=== PATIENT | female | born 1995 | race Caucasian/White ===

== ENCOUNTER 2019-10-04 10:46 | Inpatient (IN) | payer OTHER, SELFPAY ==
[2019-10-04] VITALS (20 sets, daily range): BP systolic 108–142; BP diastolic 56–87; PULSE 68–86; TEMP 36.6–37.3; BMI 34.8
--- NOTE | ~2019-10-04 | US_ITS ---
EXAMINATION: US venous doppler [facility] EXAM DATE: 10/04/2019 13:15 INDICATION: Left leg swelling. TECHNIQUE: Multiple grayscale, color flow and Doppler images of the left lower extremity deep venous system were obtained and reviewed. There is no prior study for comparison. FINDINGS: The left common femoral, femoral and profunda veins demonstrate normal color flow, respirat ory variation, augmentation and compressibility. Compressibility, color flow confirmed within the le ft popliteal, posterior tibial, peroneal, and greater saphenous veins. Scanning in the left calf elb ow region demonstrates edema within the subcutaneous fat IMPRESSION: 1. No left lower extremity deep venous thrombosis. 2. Subcutaneous edema. Reviewed, dictated and finalized at location A.
[2019-10-04 14:10] LABS: Basophils Percent Auto 0.3 % (0.2-1.2); Eosinophils Percent Auto 0.3 % (0-4.4); Hematocrit 34.4 % (37.0-47.0); Immature Granulocyte Absolute 0.08 K/mm3 (0.00-0.031); Immature Granulocyte Percent A 0.7 % (0-0.5); Immature Platelet Fraction Pct 25.4 % (0.9-11.2); Lymphocytes Absolute Auto 1.03 K/mm3 (0.9-3.2); Lymphocytes Percent Auto 9.7 % (18.3-44.2); Mean Corpuscular HGB Conc 34.9 g/dl (32-36); Mean Corpuscular Volume 94.5 fl (80-100); Mean Platelet Volume 14.5 fl (7.4-10.4); Monocytes Absolute Auto 0.5 K/mm3 (0.1-0.6); Monocytes Percent Auto 4.9 % (2.6-8.5); Neutrophils Percent Auto 84.1 % (45.5-73.1); Platelet Count Result 118 k/mm3 (150-375); Red Blood Count 3.64 M/mm3 (4.2-5.4); White Blood Count 10.7 K/mm3 (4.5-10.0)
[2019-10-04 14:20] LABS: Alanine Aminotransferase 14 U/L (4-35); Albumin Level 3.4 g/dL (3.5-5.1); Alkaline Phosphatase 207 U/L (38-126); Aspartate Amino Transferase 34 U/L (14-36); Bilirubin,Total 0.2 mg/dL (0.2-1.3); Blood Urea Nitrogen 11 mg/dL (7-17); Calcium 8.2 mg/dL (8.4-10.2); Carbon Dioxide 21 mmol/L (22-30); Chloride 100 mmol/L (98-107); Estimated Glomerular Filt Rate > 60; Glucose 67 mg/dL (65-105); Potassium 4.1 mmol/L (3.4-5.0); Sodium 128 mmol/L (137-145); Uric Acid 7.1 mg/dL (2.5-7.5)
[2019-10-04] MEDS: DINOPROSTONE 10 MG VAG INSERT VAGINAL (14:27)
--- NOTE | 2019-10-04 14:44 | PM.IMHP ---
H&P: HPI History of Present Illness Chief complaint: Induction of Labor Narrative: Bertha Whittington is a 23 yo @ 37.6wks who was sent to L&D from clinic for cervical ripening and induction of labor due to a new diagnosis of gestational hypertension. Pt also reports checking blood pressures at home and was persistently in the mild range all weekend. She was then found to have thrombocytopenia on blood work today; P/C is negative at 0.15, AST/ALT and creatintine are all normal. She reports good movement. Mild cramping. No PEC symptoms. Does reports significant LE swelling though. is complicated by: - Gestational Hypertension (P/C 0.15) - Gestational thrombocytopenia - Elevated glucola, normal 3hr OGTT - Varicella non-immune Review of Systems Constitutional: Constitutional: Denies body ache(s) and Reports fatigue Eyes: Eyes: Denies blurry vision Cardiovascular: Cardiovascular: Denies chest pain, Reports leg edema and Denies palpitations Respiratory: Respiratory: Denies cough and Denies dyspnea Gastrointestinal: Gastrointestinal: Denies abdominal pain, Denies constipation, Denies nausea and Denies vomiting Genitourinary: Genitourinary: Denies vaginal discharge Integumentary/Breasts: Skin/Breast: Reports pruritus Neurologic: Denies headache(s) [facility] Family History Family History Other Unknown family medical history Social History Social History Smoking status: Never smoker Substance use: never Spiritual care concerns: No Meds Home Medications and Allergies Home Medications Medication Instructions Recorded Confirmed Type PNV cmb#95-ferrous fumarate-FA 1 tablet PO DAILY 09/17/19 09/17/19 History [] Allergies Allergy/AdvReac Type Severity Reaction Status Date / Time erythromycin base Allergy Unknown Rash Verified 09/17/19 13:37 Sulfa (Sulfonamide Allergy Unknown Unresponsiv Verified 09/17/19 13:37 Antibiotics) e azithromycin [From Zithromax] Allergy Rash Verified 09/17/19 13:37 Vital Signs Vital Signs - 24 hr 10/04/19 11:15 10/04/19 11:30 10/04/19 11:45 Pulse Rate 83 78 78 Blood Pressure 126/70 124/68 121/64 10/04/19 12:00 10/04/19 12:15 10/04/19 13:51 Pulse Rate 79 77 74 Blood Pressure 116/63 116/69 114/62 10/04/19 14:00 10/04/19 14:16 Pulse Rate 75 79 Blood Pressure 108/57 L 124/67 Exam Const: General: comfortable and no acute distress Resp: Effort & Inspection: normal respiratory effort Auscultation: clear to auscultation bilaterally Cardio: Rate: regular rate : Other: FHT's: 130's/ mod vale/ + accels/ no decels - cat 1 TOCO: irregular ctx's q 6-10min Cervix: 2/ thick/ -3 - posterior, medium Membranes: intact Skin: Rashes: rashes noted (PUPPS on abdomen) Neuro: Cognition (Neuro): normal cognition Speech: normal speech Extrem: General: pedal edema Psych: Mental Status: mental status grossly normal H&P: Results Labs Labs: Short CBC 10/04/19 Range/Units 13:42 WBC 10.7 H (4.5-10.0) K/mm3 Hgb 12.0 (12.0-15.0) g/dL Hct 34.4 L (37.0-47.0) % Plt Count 118 L (150-375) k/mm3 BMP 10/04/19 13:42 Sodium 128 L Potassium 4.1 Chloride 100 Carbon Dioxide 21 L BUN 11 Creatinine 0.80 Glucose 67 Calcium 8.2 L Liver Function 10/04/19 Range/Units 13:42 Total Bilirubin 0.2 (0.2-1.3) mg/dL AST 34 (14-36) U/L ALT 14 (4-35) U/L Alkaline Phosphatase 207 H (38-126) U/L Albumin 3.4 L (3.5-5.1) g/dL Assessment and Plan Assessment and plan (1) Gestational hypertension: Qualifiers: Trimester: third trimester Qualified Code(s): O13.3 - Gestational [-induced] hypertension without significant proteinuria, third trimester Code(s): O13.9 - Gestational [-induced] hypertension without significant proteinuria, unspecified
[2019-10-04 14:54] LABS: Creatinine Urine 173.3 mg/dL; Total Protein Urine Random 27 mg/dL
--- NOTE | 2019-10-04 15:12 | LDADM ---
This patient, Bertha Whittington, was admitted to Labor/Delivery/Recovery 109 on 10/04/19 at 10:46. Plans for labor, pain management and were discussed with patient. Patient/family oriented to hospital policies and general routines including ID bracelet, bed and alarms, visiting hours, pain management, procedures, bathroom and other care routines, personal items, smoking policy, room service/diet and guest tray routines, security routines, and visiting hours. Patient/Family are encouraged to report perceived risks to care and to ask questions if they do not understand what they are told or what they should do. See OBIX for further documentation.
--- NOTE | 2019-10-04 17:50 | WPDANESEPP ---
Anes - Eval Pre Procedure Date/Time: 10/04/19 17:50 Pre Op Diagnosis: Induction of Labor Patient Data Age: 23 Gender: F Height: 5 ft 9 in Weight: 107 kg Last Vital Signs Temp 98 F 10/04/19 14:00 Pulse 70 10/04/19 17:01 BP 128/67 10/04/19 17:01 Allergies Allergy/AdvReac Type Severity Reaction Status Date / Time erythromycin base Allergy Unknown Rash Verified 09/17/19 13:37 Sulfa (Sulfonamide Allergy Unknown Unresponsiv Verified 09/17/19 13:37 Antibiotics) e azithromycin [From Zithromax] Allergy Rash Verified 09/17/19 13:37 Home Medications Medication Instructions Recorded Confirmed Type PNV cmb#95-ferrous fumarate-FA 1 tablet PO DAILY 09/17/19 09/17/19 History [] Laboratory Tests 10/04/19 10/04/19 10/04/19 13:42 13:42 13:42 WBC 10.7 K/mm3 H K/mm3 (4.5-10.0) RBC 3.64 M/mm3 L M/mm3 (4.2-5.4) Hgb 12.0 g/dL g/dL (12.0-15.0) Hct 34.4 % L % (37.0-47.0) MCV 94.5 fl fl (80-100) MCH 33.0 pg pg (26-34) MCHC 34.9 g/dl g/dl (32-36) RDW 13.0 % % (11.5-14.5) Plt Count 118 k/mm3 L k/mm3 (150-375) MPV 14.5 fl H fl (7.4-10.4) Immature Gran % (Auto) 0.7 % H % (0-0.5) Neut % (Auto) 84.1 % H % (45.5-73.1) Lymph % (Auto) 9.7 % L % (18.3-44.2) Lawrence % (Auto) 4.9 % % (2.6-8.5) Eos % (Auto) 0.3 % % (0-4.4) Baso % (Auto) 0.3 % % (0.2-1.2) Lymph # (Auto) 1.03 K/mm3 K/mm3 (0.9-3.2) Lawrence # (Auto) 0.5 K/mm3 K/mm3 (0.1-0.6) Eos # (Auto) 0.0 K/mm3 K/mm3 (0-0.3) Baso # (Auto) 0.0 K/mm3 K/mm3 (0.0-0.1) Abs Immat Gran (auto) 0.08 K/mm3 H K/mm3 (0.00-0.031) Absolute Neuts (auto) 9.0 K/mm3 H K/mm3 (1.3-6.7) Absolute Nucleated RBC 0.0 K/mm3 K/mm3 (0.0-0.012) Nucleated RBC % 0.0 % % (0.0-0.2) % Immature Plt Fraction 25.4 % H % (0.9-11.2) Sodium Potassium Chloride Carbon Dioxide BUN Creatinine Estim Creat Clear Calc Estimated GFR Glucose Uric Acid Cancelled Calcium Total Bilirubin AST ALT Alkaline Phosphatase Total Protein Albumin U Random Total Protein Urine Creatinine RPR Pending Blood Type Antibody Screen 10/04/19 10/04/19 10/04/19 13:42 13:42 13:56 WBC RBC Hgb Hct MCV MCH MCHC RDW Plt Count MPV Immature Gran % (Auto) Neut % (Auto) Lymph % (Auto) Lawrence % (Auto) Eos % (Auto) Baso % (Auto) Lymph # (Auto) Lawrence # (Auto) Eos # (Auto) Baso # (Auto) Abs Immat Gran (auto) Absolute Neuts (auto) Absolute Nucleated RBC Nucleated RBC % % Immature Plt Fraction Sodium 128 mmol/L L mmol/L (137-145) Potassium 4.1 mmol/L mmol/L (3.4-5.0) Chloride 100 mmol/L mmol/L (98-107) Carbon Dioxide 21 mmol/L L mmol/L (22-30) BUN 11 mg/dL mg/dL (7-17) Creatinine 0.80 mg/dL mg/dL (0.7-1.0) Estim Creat Clear Calc Not Reportable Estimated GFR > 60 (59 - ) Glucose 67 mg/dL mg/dL (65-105) Uric Acid 7.1 mg/dL mg/dL (2.5-7.5) Calcium 8.2 mg/dL L mg/dL (8.4-10.2) Total Bilirubin 0.2 mg/dL mg/dL (0.2-1.3) AST 34 U/L U/L (14-36) ALT 14 U/L U/L (4-35) Alkaline Phosphatase 207 U/L H U/L (38-126) Total Pro
[2019-10-05] VITALS (110 sets, daily range): BP systolic 98–143; BP diastolic 46–104; PULSE 63–92; TEMP 36.6–37.2; O2SAT 100
[2019-10-05 02:52] LABS: Basophils Percent Auto 0.3 % (0.2-1.2); Eosinophils Absolute Auto 0.1 K/mm3 (0-0.3); Eosinophils Percent Auto 0.4 % (0-4.4); Hematocrit 34.2 % (37.0-47.0); Hemoglobin 12.1 g/dL (12.0-15.0); Immature Granulocyte Absolute 0.09 K/mm3 (0.00-0.031); Immature Granulocyte Percent A 0.7 % (0-0.5); Lymphocytes Absolute Auto 1.59 K/mm3 (0.9-3.2); Lymphocytes Percent Auto 12.2 % (18.3-44.2); Mean Corpuscular HGB Conc 35.4 g/dl (32-36); Mean Corpuscular Hemoglobin 32.9 pg (26-34); Mean Corpuscular Volume 92.9 fl (80-100); Monocytes Absolute Auto 0.7 K/mm3 (0.1-0.6); Neutrophils Absolute Auto 10.6 K/mm3 (1.3-6.7); Neutrophils Percent Auto 81.4 % (45.5-73.1); Platelet Count Result 105 k/mm3 (150-375); Red Blood Count 3.68 M/mm3 (4.2-5.4); Red Cell Distribution Width 12.8 % (11.5-14.5); White Blood Count 13.1 K/mm3 (4.5-10.0)
[2019-10-05] MEDS: LACTATED RINGERS 1,000 ML 125 ML IV CONT ×4 (03:10→19:22)
[2019-10-05] MEDS: OXYTOCIN 30 UNITS/NS 500 ML 30 UNITS/500 ML BAG IV CONT (03:11)
[2019-10-05 03:13] LABS: Alanine Aminotransferase 14 U/L (4-35); Albumin Level 3.1 g/dL (3.5-5.1); Alkaline Phosphatase 195 U/L (38-126); Aspartate Amino Transferase 33 U/L (14-36); Bilirubin,Total 0.2 mg/dL (0.2-1.3); Blood Urea Nitrogen 12 mg/dL (7-17); Calcium 8.1 mg/dL (8.4-10.2); Carbon Dioxide 20 mmol/L (22-30); Chloride 98 mmol/L (98-107); Estimated CRCL calculation 125 ml/min; Estimated Glomerular Filt Rate > 60; Glucose 81 mg/dL (65-105); Potassium 4.1 mmol/L (3.4-5.0); Sodium 125 mmol/L (137-145)
[2019-10-05 07:34] LABS: Rapid Plasma Reagin Non-Reactive (NonReactive)
[2019-10-05] MEDS: ONDANSETRON INJ 4 MG/2 ML VIAL IV PUSH ×2 (11:39→19:17)
--- NOTE | 2019-10-05 13:45 | PM.OBPNLAB ---
Pain Control Date/time seen: 10/05/19 13:45 Pain control: epidural Pelvic Exam Dilation (cm): 5 Effacement (%): 90 station: -3 Amniotic membrane status: Ruptured (@ 0845 on 10/05/19) Contractions Monitor mode: External Contraction pattern: Regular (having some coupling q1-3min) Status status: Category ll Comments: 120's/mod vale/ + accels/ early decels, occasional mild variable decels - cat 2 but reassuring Assessment and Plan Pitocin rate (mU/min): 16 Assessment: induction ongoing Plan: continuous present management (early labor; making progress) Comments: - BP's normal; pt asymptomatic - plts stable; normal P/C and liver enzymes - Continue pitocin augmentation
[2019-10-05 17:36] LABS: Basophils Percent Auto 0.2 % (0.2-1.2); Eosinophils Percent Auto 0.1 % (0-4.4); Hematocrit 34.4 % (37.0-47.0); Hemoglobin 11.9 g/dL (12.0-15.0); Immature Granulocyte Percent A 0.7 % (0-0.5); Lymphocytes Absolute Auto 1.14 K/mm3 (0.9-3.2); Lymphocytes Percent Auto 7.9 % (18.3-44.2); Mean Corpuscular HGB Conc 34.6 g/dl (32-36); Mean Corpuscular Hemoglobin 32.3 pg (26-34); Mean Corpuscular Volume 93.5 fl (80-100); Mean Platelet Volume 14.5 fl (7.4-10.4); Monocytes Absolute Auto 0.8 K/mm3 (0.1-0.6); Monocytes Percent Auto 5.3 % (2.6-8.5); Neutrophils Absolute Auto 12.5 K/mm3 (1.3-6.7); Neutrophils Percent Auto 85.8 % (45.5-73.1); Platelet Count Result 97 k/mm3 (150-375); Red Blood Count 3.68 M/mm3 (4.2-5.4); White Blood Count 14.5 K/mm3 (4.5-10.0)
[2019-10-05 17:43] LABS: Alanine Aminotransferase 14 U/L (4-35); Alkaline Phosphatase 192 U/L (38-126); Anion Gap 11.4 mmol/L (7-16); Aspartate Amino Transferase 31 U/L (14-36); Bilirubin,Total 0.2 mg/dL (0.2-1.3); Blood Urea Nitrogen 13 mg/dL (7-17); Calcium 7.8 mg/dL (8.4-10.2); Carbon Dioxide 22 mmol/L (22-30); Chloride 97 mmol/L (98-107); Estimated CRCL calculation 112 ml/min; Estimated Glomerular Filt Rate > 60; Glucose 73 mg/dL (65-105); Potassium 4.4 mmol/L (3.4-5.0); Sodium 126 mmol/L (137-145); Uric Acid 6.5 mg/dL (2.5-7.5)
[2019-10-05] MEDS: OXYTOCIN 30 UNITS/NS 500 ML 30 UNITS/500 ML BAG 125 UNITS IV CONT (23:30)
--- NOTE | 2019-10-05 23:49 | PM.OBPRVD ---
OB - Delivery Note Procedure Delivery date: 10/05/19 events: Induced HTN Intrapartal events: Abnormal Labs (gestational thrombocytopenia) Induction method: other (cervidil) Delivery augmentation: rupture of membranes and pitocin Delivery monitor: external uterine and internal FHT Route of delivery: Laceration description: Vaginal - 2nd Degree (bilateral that extended to the labia; vaginal packing and dia catheter placed due to extensive swelling and oozing) Delivery repair: vicryl Specimen: Yes Estimated blood loss (mL): 450 Anesthesia type: Epidural Disposition: floor Narrative: Patient progressed to complete dilation however was found to be very asynclytic. She pushed with good maternal effort for approximately the 2 hours. She delivered the head in direct OA over intact perineum. No nuchal cord was palpated. the shoulders and body easily delivered. The was immediately placed skin to skin and had spontaneous cry. The umbilical cord was then clamped and cut. a segment of cord was collected cord gases and the remaining cord blood was collected for typing. With Pitocin running and gentle traction on the cord the placenta delivered without complications and the uterus is found to be firm. Brisk bleeding was noted and the vagina was examined and found to bilateral vaginal lacerations extending into the labia due to the patient's extensive vulvar edema. the vaginal lacerations were repaired using 2 0 Vicryl in a running fashion. However extensive oozing was noted from all of the raw edges due to the patient's thrombocytopenia. One vaginal packing was placed as well as a Dia catheter. Sponge, lap, needle, and instrument counts were correct at the end of the procedure. The patient was left in the birthing suite bonding skin to skin with her baby in a stable condition. [facility]on Baby Date of : 10/05/19 Time of : 23:03 Weeks of gestation at delivery: 38 Infant gender: Female Weight (pounds): 7 Weight (ounces): 11 presentation: vertex Placenta delivery description: Expressed cord vessel description: 3 Vessels score one minute: 8 score five minutes: 9
[2019-10-06] VITALS (12 sets, daily range): BP systolic 116–143; BP diastolic 60–84; PULSE 70–81; RESP 12–16; TEMP 36.7–37.1; O2SAT 98–99
[2019-10-06] MEDS: IBUPROFEN 600 MG TABLET PO ×4 (00:31→21:41)
[2019-10-06] MEDS: WITCH HAZEL 40 PADS 1 PAD TOPICAL (00:31)
[2019-10-06] MEDS: BENZOCAINE 20% AER SPR (*SP) 56 GM CAN 1 SPRAY TOPICAL (00:31)
[2019-10-06] MEDS: miSOPROStol 200 MCG TABLET 1000 MCG (00:34)
--- NOTE | 2019-10-06 02:10 | PC.NURSE ---
0145 Pt to floor per wheelchair accompanied by staff and baby in crib. Plan of care and floor routines explained to pt and she voices understanding. Mom encouraged to make needs and concerns known to staff
[2019-10-06 05:53] LABS: Hematocrit 31.3 % (37.0-47.0); Hemoglobin 10.9 g/dL (12.0-15.0)
[2019-10-06 06:06] LABS: Alanine Aminotransferase 19 U/L (4-35); Albumin Level 2.6 g/dL (3.5-5.1); Alkaline Phosphatase 149 U/L (38-126); Anion Gap 9.9 mmol/L (7-16); Aspartate Amino Transferase 43 U/L (14-36); Bilirubin,Total 0.3 mg/dL (0.2-1.3); Blood Urea Nitrogen 14 mg/dL (7-17); Calcium 7.6 mg/dL (8.4-10.2); Carbon Dioxide 20 mmol/L (22-30); Chloride 97 mmol/L (98-107); Estimated CRCL calculation 112 ml/min; Estimated Glomerular Filt Rate > 60; Glucose 107 mg/dL (65-105); Potassium 3.9 mmol/L (3.4-5.0); Sodium 123 mmol/L (137-145)
--- NOTE | 2019-10-06 07:00 | PC.NURSE ---
PT introductions made and plan of care discussed per post , pain management, breast feeding, daily care activities and vaginal packing and dia. PT verbalized understanding of such care.
[2019-10-06] MEDS: MULTIVIT/MIN/PREN/FOL AC/IRON TABLET 1 TAB PO (07:04)
[2019-10-06] MEDS: DOCUSATE SODIUM 100 MG CAPSULE PO ×2 (07:05→16:49)
[2019-10-06] MEDS: ACETAMINOPHEN 325 MG TABLET 650 MG PO ×2 (07:05→13:05)
[2019-10-06 08:42] LABS: Hematocrit 31.5 % (37.0-47.0); Mean Corpuscular HGB Conc 34.9 g/dl (32-36); Mean Corpuscular Hemoglobin 32.4 pg (26-34); Mean Corpuscular Volume 92.9 fl (80-100); Platelet Count Result 94 k/mm3 (150-375); Red Blood Count 3.39 M/mm3 (4.2-5.4); Red Cell Distribution Width 12.9 % (11.5-14.5); White Blood Count 22.5 K/mm3 (4.5-10.0)
--- NOTE | 2019-10-06 09:34 | WPDANLDPN2 ---
Anes-Prog Note L&D Date/Time: 10/06/19 09:34 Comfortable throughout: labor and delivery Neuraxial method: epidural Epidural/Spinal procedure site: clean & non-tender Neuro status: Neuro function grossly intact. Cardiovascular status: normal Respiratory status: normal Airway patency: baseline Mental status: baseline Post-Op hydration status: normal Vital Signs: Last Vital Signs Temp 37.1 C 10/06/19 07:50 Pulse 79 10/06/19 07:50 Resp 16 10/06/19 07:50 BP 124/60 10/06/19 07:50 Pulse Ox 98 10/06/19 07:50 I/O: Intake & Output 10/05/19 10/06/19 10/06/19 23:59 07:59 15:59 Intake Total 3500 600 Output Total 450 575 Balance 3050 25 Post-procedural complaints: none Patient feedback: Patient satisfied with anesthetic care.
--- NOTE | 2019-10-06 12:20 | PC.NURSE ---
Upon entering mother has to breast. Mother states her RN assisted with this feeding. Reviewed infant feeding cues, frequencies, duration of feedings, feeding elimination flow sheet, and signs of adequate intake. Reviewed positioning/alignment in cross cradle, holding breast in U hold and guided asymmetrical latch on. Discussed rational for each. Mother denies discomfort with feeding. nursed eagerly, with steady draws and frequent swallowing noted. Reviewed signs of a correct latch, effective nursing and suck swallow ratio. Infant was able to maintain latch without discomfort to mother. Nipple care reviewed. Suggested mother stimulate while feeding to keep awake and nursing effectively for increased intake and to assist with maintaining deep latch. Demonstrated how to adjust latch more deeply while feeding. Instructed mother to call out for RN assistance if she is unable to latch infant for feeding or she has discomfort with nursing. Instructed feeding should be initiated three hours from start of last feeding or if feeding cues are noted before. Mother voiced understanding of information shared.
[2019-10-07] MEDS: IBUPROFEN 600 MG TABLET PO ×2 (04:00→10:20)
[2019-10-07 08:20] VITALS: BP 122/72; PULSE 68; RESP 16; TEMP 37; O2SAT 99
[2019-10-07] MEDS: MULTIVIT/MIN/PREN/FOL AC/IRON TABLET 1 TAB PO (10:20)
[2019-10-07] MEDS: DOCUSATE SODIUM 100 MG CAPSULE PO (10:20)
--- NOTE | 2019-10-07 11:40 | PC.NURSE ---
Observed mother verbalizes she is able to independently latch with appropriate positioning/alignment. She denies any nipple discomfort, is feeding as required and waking to feed if needed. has had at least 8 effective feedings in the past 24 hours, and is currently meeting outcomes for weight, output, jaundice and feeding frequencies. Mother states she feels confident to continue effective at home. Reviewed transition to breast milk, signs of adequate intake, and engorgement/relief. Instructed to call ICP if intake/output less than required. Reviewed regular medications mother is taking. Information provided per Carmela. Reviewed community resources on the [facility] website and in the Mom/Baby guide. Information on outpatient services provided. Mother has no further questions at this time.
--- NOTE | 2019-10-07 13:05 | P.PNOB_ITS ---
OB - PN: Subj Subjective Date/time seen: 10/07/19 13:05 Bertha is a 23yo now P1001 s/p @ 38.0wks, PPD#2 - GHTN, gestational thrombocytopenia, elevated glucola/normal OGTT Today, Bertha is doing well. The dia was removed this morning and she has voided 4 times since. She reports her pain is well controlled with the Ibuprofen. She is tolerating regular diet w/o N/V. She is breast feeding. She denies any issues. She would like to go home today. OB - PN: Obj Data Labs CBC & Chem 7: 10/06/19 05:22 10/06/19 05:22 OB - PN A/P Assessment and Plan (1) Gestational hypertension: Qualifiers: Trimester: third trimester Qualified Code(s): O13.3 - Gestational [-induced] hypertension without significant proteinuria, third trimester Code(s): O13.9 - Gestational [-induced] hypertension without significant proteinuria, unspecified trimester Status: Acute (2) Gestational thrombocytopenia: Qualifiers: Trimester: third trimester Qualified Code(s): O99.113 - Other diseases of the blood and blood-forming organs and certain disorders involving the immune mechanism complicating , third trimester; D69.6 - Thrombocytopenia, unspecified Code(s): O99.119 - Other diseases of the blood and blood-forming organs and certain disorders involving the immune mechanism complicating , unspecified trimester; D69.6 - Thrombocytopenia, unspecified Status: Acute (3) Normal vaginal delivery: Code(s): O80 - Encounter for full-term uncomplicated delivery Status: Acute Plan day: 2 Plan: routine care and discharge home Comments: - BP's normal, labs stable, pt asymptomatic - Pt diuresing nicely and swelling improved, continue ice packs to vulva and ambulating - Dia removed this morning and pt has spontaneously voided multiple times - D/c home today; ER return precautions discussed in detail (HTN symptoms, pain/n/v, bleeding, fever) - Pelvic rest x4 weeks - F/u in 4 weeks, call office with any issues or questions. Time Spent With Patient Time: Total time spent is greater than 50% in coordination of care (as documented) at patient's floor/unit and/or counseling patient: Review of Systems Constitutional: Constitutional: Denies body ache(s) and Denies headache(s) Cardiovascular: Cardiovascular: Denies rapid heart rate Respiratory: Respiratory: Denies cough and Denies dyspnea Gastrointestinal: Gastrointestinal: Denies abdominal pain, Denies nausea and Denies vomiting Genitourinary: Genitourinary: Denies dysuria Comments: normal bleeding, swelling improved Neurologic: Denies headache(s) Exam Const: General: comfortable, no acute distress, alert and awake Orientation/consciousness: patient oriented x3 Resp: Effort & Inspection: normal respiratory effort Auscultation: clear to auscultation bilaterally Cardio: Rate: regular rate GI: Auscultation: normal bowel sounds Other: mildly distended, soft, non tender : Other: fundus firm at umbilicus, labia majora noted to still be edematous but significantly improved from yesterday, normal lochia Psych: Appearance: grossly normal Affect: normal affect Attitude: cooperative Judgement: Good judgement present (Psych)
[2019-10-10 08:57] VITALS: BP 134/79; PULSE 74; RESP 16; TEMP 37.1; O2SAT 100
--- NOTE | 2019-10-10 09:48 | PC.NURSE ---
0940 TALKED WITH MOM ABOUT POSSIBLE SUPPLEMENTATION TODAY OR UNTIL [facility]'S DOCTOR APPOINTMENT EVERY 4 HOURS WITH EITHER PUMPED BREAST MILK OR FORMULA WITH 15-30 ML TO HELP WITH WEIGHT GAIN
--- NOTE | 2019-10-17 11:05 | PM.OBDSVD ---
DS: Admitting Diagnosis Admitting Diagnosis Admitting Diagnosis: Encounter for supervision of normal , unspecified, third trimester DS: Discharge Diagnosis Discharge Diagnosis (1) Normal vaginal delivery: Code(s): O80 - Encounter for full-term uncomplicated delivery Status: Acute (2) Gestational hypertension: Qualifiers: Trimester: third trimester Qualified Code(s): O13.3 - Gestational [-induced] hypertension without significant proteinuria, third trimester Code(s): O13.9 - Gestational [-induced] hypertension without significant proteinuria, unspecified trimester Status: Acute (3) Gestational thrombocytopenia: Qualifiers: Trimester: third trimester Qualified Code(s): O99.113 - Other diseases of the blood and blood-forming organs and certain disorders involving the immune mechanism complicating , third trimester; D69.6 - Thrombocytopenia, unspecified Code(s): O99.119 - Other diseases of the blood and blood-forming organs and certain disorders involving the immune mechanism complicating , unspecified trimester; D69.6 - Thrombocytopenia, unspecified Status: Acute OB - DS: Summary OB Procedures : None OB Procedures Intrapartum: Spontaneous Vag Delivery OB Procedures: : None Peripartum Data Delivery Method: Natural Vaginal Laceration description: Vaginal - 2nd Degree (and bilateral labial ) complications: perineal laceration (with significant swelling; had vaginal packing and dia catheter) 1: Gender: Female Disposition of : home Status at Discharge Functional status at discharge: independent ambulation Overall status at discharge: patient is back to baseline Time Spent with Patient Time attestation: Total time spent providing and/or coordinating discharge services: Exam Const: General: comfortable, no acute distress, alert and awake Orientation/consciousness: patient oriented x3 Resp: Effort & Inspection: normal respiratory effort Cardio: Rate: regular rate GI: GI Palp: Yes Soft to palpation and No Tenderness to palpation present (GI) Auscultation: normal bowel sounds Other: fundus firm below umbilicus : External Female Exam: external swelling (but significantly improved when compared to immediately ) Psych: Appearance: grossly normal Affect: normal affect Attitude: cooperative Judgement: Good judgement present (Psych) DS: Data Data Completed and Pending Completed studies during hospitalization: Pending at discharge 10/05/19 23:09 Surgical [PTH] Routine Discharge Plan Discharge Attending physician on discharge: Sandrita Wisdom Consulting providers: Jack Wolfe Discharging Clinician: Sandrita Wisdom Anticipated Discharge Date/Time: 10/07/19 13:11 Patient Disposition: Home, Self-Care Activity: pelvic rest Diet: as tolerated Discharge Instructions: Education: Mom and Baby Guide Given to: Mother Follow-Up: Call your delivering provider's office for an appointment to be seen. Mom and baby should come to the [facility] for the follow-up appointment. Appointment Date/Time: October 10, 2019 at 9:00 am What to expect at your follow-up visit: Physical Assessment Call [phone] if you are unable to keep your appointment time. BREAST CARE: 1. Wear a snug supportive bra. 2. For engorgement discomfort: Breast Feeding: A. Apply warm moist washcloths B. Express milk as needed to relieve engorgement C. Wear loose clothing 3. For sore nipples: A. Identify correct latch-on B. Apply warm moist washcloths before and after nursing C. Air dry nipples after nursing D. May apply Lansinoh cream to nipples EPISIOTOMY/PERINEAL CARE: 1. Until bleeding stops, use your eriberto bottle after urinating 2. Change your pad frequently throughou
== END 2019-10-07 15:02 | disposition home or self-care (01) | DRG 806 ==
LOC: ANHLDR 10:51 → ANHOB2 10-06 02:08
PROVIDERS: Admitting Provider Obstetrics & Gynecology; PCP Nurse Practitioner Family; Visit Provider Obstetrics & Gynecology
DX: O14.04 Mild to moderate pre-eclampsia, complicating childbirth (principal); O99.12 Other diseases of the blood and blood-forming organs and certain disorders involving the immune mechanism complicating childbirth; Z37.0 Single live birth; O70.1 Second degree perineal laceration during delivery; D69.6 Thrombocytopenia, unspecified; O76 Abnormality in fetal heart rate and rhythm complicating labor and delivery; Z3A.38 38 weeks gestation of pregnancy
CPT/HCPCS: 36415; 80053; 82570; 84156; 84550; 85014; 85018; 85025; 85027; 85055; 86592; 86850; 86900; 86901; 88307; 93971; A9270; J2405; J2590; J2795; J3010; J7120

== ENCOUNTER 2020-06-04 14:02 | Emergency (ER) | payer OTHER, SELFPAY ==
--- NOTE | ~2020-06-04 | XR_ITS ---
EXAMINATION: XR ankle RT min 3V DATE: 06/04/2020 14:23 INDICATION: Medial and posterior right ankle pain post trampoline injury TECHNIQUE: Anteroposterior, oblique, mortise, and lateral views of the right ankle were obtained. COMPARISON: None. FINDINGS: Alignment is normal. No fracture. Joint spaces are well maintained. No ankle joint effusion. The so ft tissues are unremarkable. IMPRESSION: 1. . Negative right ankle radiographs. Reviewed, dictated and finalized at location A.
[2020-06-04 14:08] VITALS: BP 109/50; PULSE 81; RESP 18; TEMP 37.1; O2SAT 100
--- NOTE | 2020-06-04 15:45 | ED.GENADULT ---
HPI - General Adult General Chief complaint: Extremity Injury, Lower Stated complaint: right ankle pain Time Seen by Provider: 06/04/20 15:41 Source: patient History of Present Illness HPI narrative: Patient is a 24 y/o female complaining or right ankle after jumping on the trampoline yesterday. She describes her pain as sharp and rates it as 7-8/10. She took Tylenol and Ibuprofen which helps some with her pain. She is able to ambulate, although with some limp. She denies other injury. Related Data Home Medications Medication Instructions Recorded Confirmed PNV cmb#95-ferrous fumarate-FA 1 tablet PO DAILY 09/17/19 09/17/19 [] Allergies Allergy/AdvReac Type Severity Reaction Status Date / Time erythromycin base Allergy Unknown Rash Verified 06/04/20 15:42 Sulfa (Sulfonamide Allergy Unknown Unresponsiv Verified 06/04/20 15:42 Antibiotics) e azithromycin [From Zithromax] Allergy Rash Verified 06/04/20 15:42 Review of Systems Eyes: Eyes: Reports blurry vision ENT: Denies headache(s) and Denies neck pain Gastrointestinal: Gastrointestinal: Denies abdominal pain and Reports vomiting Genitourinary: Genitourinary: Reports dysuria Musculoskeletal: Musculoskeletal: Denies back pain, Reports arthralgias (right ankle pain) and Denies neck pain Neurologic: Reports headache(s) [facility] Past Medical History Medical History Gestational hypertension Gestational thrombocytopenia Overweight on examination Family History Family History Other Unknown family medical history Social History Social History Smoking status: Never smoker Substance use: never Gender identity (if verbalized by the patient): Female Spiritual care concerns: No Exam Const: General: no acute distress and well developed Orientation/consciousness: oriented to person, oriented to place, oriented to time and patient oriented x3 HENMT: Head: normocephalic General nose exam: Normal external nose present Chest: Chest palpation & inspection: normal inspection of the chest and no tenderness Resp: Effort & Inspection: normal respiratory effort and able to speak in complete sentences Skin: General skin exam: normal color and turgor normal Neuro: General: oriented to person, oriented to place, oriented to time and patient oriented x3 Extrem: General: normal to inspection, full ROM and no pedal edema Right lower extremity: ankle Details: tenderness Location: of the medial malleolus Course Vital Signs Vital signs: Vital Signs Temperature 37.1 C 06/04/20 14:08 Pulse Rate 81 06/04/20 14:08 Respiratory Rate 18 06/04/20 14:08 Blood Pressure 109/50 L 06/04/20 14:08 Pulse Oximetry 100 06/04/20 14:08 Temperature 37.1 C 06/04/20 14:08 Pulse Rate 81 06/04/20 14:08 Respiratory Rate 18 06/04/20 14:08 Blood Pressure 109/50 L 06/04/20 14:08 Pulse Oximetry 100 06/04/20 14:08 Medical Decision Making Vital Signs Vital Signs: Vital Signs Temperature 37.1 C 06/04/20 14:08 Pulse Rate 81 06/04/20 14:08 Respiratory Rate 18 06/04/20 14:08 Blood Pressure 109/50 L 06/04/20 14:08 Pulse Oximetry 100 06/04/20 14:08 Temperature 37.1 C 06/04/20 14:08 Pulse Rate 81 06/04/20 14:08 Respiratory Rate 18 06/04/20 14:08 Blood Pressure 109/50 L 06/04/20 14:08 Pulse Oximetry 100 06/04/20 14:08 Discharge Plan Discharge Clinical Impression: Right ankle sprain Qualifiers: Encounter type: initial encounter Involved ligament of ankle: unspecified ligament Qualified Code(s): S93.401A - Sprain of unspecified ligament of right ankle, initial encounter Patient Disposition: Home, Self-Care Condition: Stable Instructions: Ankle Sprain (ED) Prescriptions: No Action PNV cmb#95-ferrous fumarate-FA [] 28
== END 2020-06-04 16:04 | disposition home or self-care (01) ==
LOC: ANHED 15:57
PROVIDERS: Emergency Provider Emergency Medicine; PCP Nurse Practitioner Family
DX: S93.401A Sprain of unspecified ligament of right ankle, initial encounter (principal); Y93.44 Activity, trampolining; X58.XXXA Exposure to other specified factors, initial encounter
CPT/HCPCS: 73610; 99283

== ENCOUNTER 2022-04-17 00:16 | Day surgery (SDC) | payer OTHER, SELFPAY ==
[2022-04-08 15:10] VITALS: BMI 23.0
--- NOTE | 2022-04-08 15:19 | SUR.PREOP ---
Report to the Outpatient Waiting Room, entrance under the green pavilion located off [facility], at 0700 on 05/07/22. Planned Procedure: 0900. Time changes happen often and if your time is changed the preop area will call you the afternoon before. - You and your visitor will be asked to self-screen and do not enter if you have any COVID symptoms. - Only one visitor is requested with a max of two and NO children visitors are allowed at this time. - The patient visitor may be requested to leave or wait in car when not with patient due to distancing restrictions. - A mask is optional within the hospital at this time. Patients may have clear liquids (water, carbonated beverages, clear teas, apple juice) until 3 hours prior to surgery with a maximum of 20 ounces. - No food from midnight until time of surgery Take the following medications with a SIP of water the morning of surgery: DO NOT STOP ANY OF YOUR OTHER PRESCRIPTION MEDICATIONS PRIOR TO SURGERY ?EXCEPT THE FOLLOWING Medications to discontinue per physician multivitamin Date to take last dose-3 days prior Please no make-up, nail congolese, hairspray, perfume, deodorant, or body powder the day of surgery. No jewelry (including any body piercings) or valuables the day of surgery, leave them at home. Please take a shower or bath the night before, or the morning of, surgery with an antibacterial soap. Wear comfortable, loose fitting clothing. - Jewelry must be removed prior to entering the operating room. Rings and piercings that are not removed may be cut off. - The hospital will not accept responsibility for valuables. - Please leave all valuables, including medications, at home the day of surgery. If you are going home after surgery, a licensed o[employer] company driver must drive you home. - NO public transportation without another adult if you receive anesthesia. - We recommend that an adult stay with you for 24 hours following discharge. - We also recommend that you do not drive, make important decision, drink alcoholic beverages, or take any drugs that were not prescribed by your health care provider for at least 24 hours after your discharge time. Follow any additional instructions given to you from your surgeon. If you or anyone in your household have experienced Covid symptoms in the past week, please notify your surgeon or the nurse liaison at the phone number below for possible testing. Telephone instructions given to patient and asked if any additional questions and then verbalized understanding. Patient advised to call surgeon office or pre surgery nurse liaison [phone] if any additional questions.
[2022-04-17] VITALS (8 sets, daily range): BP systolic 93–118; BP diastolic 50–70; PULSE 60–89; RESP 12–20; TEMP 36.6–36.9; O2SAT 97–100
[2022-04-17] MEDS: ACETAMINOPHEN 500 MG TABLET 1000 MG PO (07:05)
--- NOTE | 2022-04-17 07:20 | WPDHPUPDATE1 ---
History and Physical Update Update Date/Time: 04/17/22 07:20 26 y/o female for permanent sterilization. Assessmnet: 1. undesired fertility Plan: 1. laparoscopic bilateral salpingectomy History and Physical has been reviewed, including an updated exam of the patient. There are NO changes in the patient's condition. Risks, benefits, and alternatives have been discussed and questions answered. Patient agrees to proceed with procedure.
--- NOTE | 2022-04-17 07:52 | WPDANESEPPF ---
Anes - Initial Pre Proc Eval Procedure: Operation Date: 04/17/22 09:00 Proposed Procedures p Laparoscopic Bilateral Salpingectomy - Zackery Silveira MD Date/Time: 04/17/22 07:52 Surgeon: Zackery Silveira MD Pre Op Diagnosis: Desires Sterilization Patient Data Age: 26 Gender: F Height: 1.75 m Weight: 73.5 kg Last Vital Signs Temp 36.9 C 04/17/22 07:04 Pulse 64 04/17/22 07:04 Resp 20 04/17/22 07:04 BP 100/55 L 04/17/22 07:04 Pulse Ox 100 04/17/22 07:04 O2 Del Method Room Air 04/17/22 07:04 Allergies Allergy/AdvReac Type Severity Reaction Status Date / Time Sulfa (Sulfonamide Allergy Severe syncope/dehydration/sun Verified 04/17/22 07:04 Antibiotics) sensitivity/nausea/vomiting azithromycin [From Zithromax] AdvReac Unknown Rash Verified 04/17/22 07:04 erythromycin base AdvReac Unknown Rash Verified 04/17/22 07:04 Home Medications Medication Instructions Recorded Confirmed Type norethindrone 1 mg-ethinyl 1 tablet PO DAILY #84 tabs 03/19/22 04/17/22 Rx estradiol 20 mcg (24)-iron 75 mg (4) tablet () pivaxjcb-scn-LB 200 mcg-vit K 100 1 cap PO DAILY 04/08/22 04/17/22 History mcg-lycop 500 fjj-qheecn-U23 capsule (Daily Multivitamin) Patient hx anesthesia problems: none Family hx anesthesia problems: none Results Review: All pre-operative results and documents have been reviewed as part of the pre-operative evaluation. [facility] Past Medical History Medical History (System 03/20/22 @ 09:35 by Rossy Mann) Colonoscopy planned 12/09/2018 Encounter for insertion of mirena IUD mirena iud insertion 11/16/2019 Gestational hypertension Gestational thrombocytopenia Overweight on examination Vaginal irritation Surgical History Surgical History (System 03/20/22 @ 09:35 by Rossy Mann) History of gynecological procedure childhood - vaginal tear requiring stitches ( fell on stool) Family History Family History Grandparent Hypertension Colon cancer Osteoporosis Other Unknown family medical history Social History Social History (System 03/20/22 @ 09:35 by Rossy Mann) Smoking status: Never smoker Second hand tobacco smoke exposure: No Alcohol intake: current Alcohol use details: 1 glass of wine/month Substance use: never Substance use type: does not use Living arrangements: with family Occupation/Education: occupation Additional occupation/education comments: [employer] Gender identity (if verbalized by the patient): Female Sexual Orientation (if Verbalized by the Patient): Straight or Heterosexual Spiritual care concerns: No Anes - Eval Final PreProcedure Day of Procedure 04/17/22 07:52 Patient weight: normal Heart: regular rate and rhythm Lungs: clear to auscultation Airway: Mallampati scale class II Neurological: alert and oriented Last oral intake: >/= 8 hours ASA classification: I Emergent: no Anesthetic plan: proceed Anesthesia type and monitoring: general ETT and standard monitoring Results Review: All pre-operative results and documents have been reviewed as part of the pre-operative evaluation. Informed Consent: The patient's anesthetic plan and its attendant risks and benefits were discussed with the patient/family/POA. Questions were solicited and answers provided to the satisfaction of the patient/family/POA.
[2022-04-17] MEDS: KETOROLAC 15 MG/ML VIAL (*BKC) IV PUSH (08:20)
[2022-04-17] MEDS: LACTATED RINGERS 1,000 ML 30 ML IV CONT (08:20)
--- NOTE | 2022-04-17 09:07 | W.PM.PROC2 ---
Procedure Note - Detailed Date of Procedure 04/17/22 Pre-op Diagnosis Desires Sterilization Post-op Diagnosis Same Procedure Performed Laparoscopic bilateral salpingectomy Surgeon Zackery Silveira MD Anesthesia General Findings Uterus tubes and ovaries without abnormality. Description of Procedure Patient prepped draped usual manner for this procedure. Cervical instruments placed for uterine mobility throughout the case. Abdominal trocar sites were placed under direct visualization. The Harmonic scalp was used to cauterize and cut the mesial salpinx bilaterally and the tubes removed without difficulty through these lower ports as well. There was no bleeding, gas was allowed to escape and trocars removed. Incisions were approximated using 4-0 Monocryl and skin glue was. Patient was sent to recovery room in stable condition. Estimated Blood Loss 10 Drains No Packing No Pathology Yes Complications No immediate complications Condition Stable Disposition PACU [facility] Billing Surgery - Charge Forward: Surgery Billing
== END 2022-04-17 10:55 | disposition home or self-care (01) ==
PROVIDERS: PCP Nurse Practitioner Family; Visit Provider Obstetrics & Gynecology
PROC: (CPT 49320; principal; 2022-04-17 09:00)
DX: Z30.2 Encounter for sterilization (principal)
CPT/HCPCS: 58661; 88302; A9270; J0330; J1100; J1170; J1885; J2250; J2405; J2704; J7120

== ENCOUNTER 2022-09-02 00:56 | Day surgery (SDC) | payer OTHER, SELFPAY ==
[2022-08-26 15:02] VITALS: BMI 22.6
--- NOTE | 2022-08-26 15:09 | PC.NURSE ---
Report to the Outpatient Waiting Room, entrance under the green pavilion located off [facility], at 0930 on 08/26/22. Planned Procedure Time: 1130. Time changes happen often and if your time is changed the preop area will call you the afternoon before. - You and your visitor will be asked to self-screen and do not enter if you have any COVID symptoms. - A mask is optional within the hospital at this time. Patients may have clear liquids (water, carbonated beverages, clear teas, apple juice) until 3 hours prior to surgery with a maximum of 20 ounces. - No food from midnight until time of surgery Take the following medications with a SIP of water the morning of surgery: N/A DO NOT STOP ANY OF YOUR OTHER PRESCRIPTION MEDICATIONS PRIOR TO SURGERY ?EXCEPT THE FOLLOWING Medications to discontinue per physician Multivitamin Date to take last dose 3 days prior Please no make-up, nail lao, hairspray, perfume, deodorant, or body powder the day of surgery. No jewelry (including any body piercings) or valuables the day of surgery, leave them at home. Please take a shower or bath the night before, or the morning of, surgery with an antibacterial soap. Wear comfortable, loose fitting clothing. . - Jewelry must be removed prior to entering the operating room. Rings and piercings that are not removed may be cut off. - The hospital will not accept responsibility for valuables. - Please leave all valuables, including medications, at home the day of surgery. If you are going home after surgery, a licensed race car driver must drive you home. - NO public transportation without another adult if you receive anesthesia. - We recommend that an adult stay with you for 24 hours following discharge. - We also recommend that you do not drive, make important decision, drink alcoholic beverages, or take any drugs that were not prescribed by your health care provider for at least 24 hours after your discharge time. Follow any additional instructions given to you from your surgeon. If you or anyone in your household have experienced Covid symptoms in the past week, please notify your surgeon or the nurse liaison at the phone number below for possible testing. Telephone instructions given to patient and asked if any additional questions and then verbalized understanding. Patient advised to call surgeon office or pre surgery nurse liaison [phone] if any additional questions.
[2022-09-02] VITALS (9 sets, daily range): BP systolic 103–119; BP diastolic 60–69; PULSE 73–93; RESP 13–20; TEMP 36.3–37; O2SAT 99–100
[2022-09-02] MEDS: LACTATED RINGERS 1,000 ML 30 ML IV CONT ×2 (09:53→15:18)
[2022-09-02 10:01] LABS: Urine Cotinine NEGATIVE
--- NOTE | 2022-09-02 10:28 | SUR.PREOP ---
PATIENT UPDATED ON SURGERY START DELAY
--- NOTE | 2022-09-02 10:39 | WPDANESEPPF ---
Anes - Initial Pre Proc Eval Procedure: Operation Date: 09/02/22 11:30 Proposed Procedures p Abdominoplasty - Pablito Huston MD s Umbilical Hernia Repair - Dinah Hoffman MD Date/Time: 09/02/22 10:39 Surgeon: Pablito Huston MD Pre Op Diagnosis: Skin Laxity, umbilical hernia Patient Data Age: 26 Gender: F Height: 1.75 m Weight: 70.4 kg Last Vital Signs Temp 37.0 C 09/02/22 09:40 Pulse 86 09/02/22 09:40 Resp 18 09/02/22 09:40 BP 106/64 09/02/22 09:40 Pulse Ox 100 09/02/22 09:40 O2 Del Method Room Air 09/02/22 09:40 Allergies Allergy/AdvReac Type Severity Reaction Status Date / Time Sulfa (Sulfonamide Allergy Severe Anaphylaxis Verified 09/02/22 09:51 Antibiotics) azithromycin [From Zithromax] AdvReac Unknown Rash Verified 09/02/22 09:51 erythromycin base AdvReac Unknown Rash Verified 09/02/22 09:51 Home Medications Medication Instructions Recorded Confirmed Type vbnjkimc-zge-LV 200 mcg-vit K 100 1 cap PO DAILY 04/08/22 09/02/22 History mcg-lycop 500 ygr-futyzx-G16 capsule (Daily Multivitamin) Laboratory Tests 09/02/22 09:46 Cotinine Negative Patient hx anesthesia problems: post op nausea/vomiting Family hx anesthesia problems: none Results Review: All pre-operative results and documents have been reviewed as part of the pre-operative evaluation. [facility] Past Medical History Medical History Colonoscopy planned 12/09/2018 Encounter for insertion of mirena IUD mirena iud insertion 11/16/2019 Gestational hypertension Gestational thrombocytopenia Overweight on examination Vaginal irritation Surgical History Surgical History H/O bilateral salpingectomy (04/17/22) History of gynecological procedure childhood - vaginal tear requiring stitches ( fell on stool) History of gynecological procedure (03/19/22) mirena iud removal Family History Family History Grandparent Hypertension Colon cancer Osteoporosis Lung cancer Other Unknown family medical history Social History Social History Smoking status: Never smoker Second hand tobacco smoke exposure: No Alcohol intake: current Alcohol use details: 1xper month Substance use: never Substance use type: does not use Living arrangements: with family Additional living arrangements comments: Occupation/Education: occupation Additional occupation/education comments: [employer] Gender identity (if verbalized by the patient): Female Sexual Orientation (if Verbalized by the Patient): Straight or Heterosexual Spiritual care concerns: No Anes - Eval Final PreProcedure Day of Procedure 09/02/22 10:39 Patient weight: normal Heart: regular rate and rhythm Lungs: clear to auscultation and normal air movement Airway: Mallampati scale class II Neurological: alert and oriented Last oral intake: >/= 8 hours ASA classification: I Emergent: no Anesthetic plan: proceed Anesthesia type and monitoring: general and standard monitoring Results Review: All pre-operative results and documents have been reviewed as part of the pre-operative evaluation. Informed Consent: The patient's anesthetic plan and its attendant risks and benefits were discussed with the patient/family/POA. Questions were solicited and answers provided to the satisfaction of the patient/family/POA.
[2022-09-02] MEDS: SCOPOLAMINE 1.5 MG PATCH TRANSDERM (10:46)
--- NOTE | 2022-09-02 10:55 | PM.IMHP ---
H&P: HPI History of Present Illness Date/Time: 09/02/22 10:55 Chief Complaint: umbilical hernia Narrative: Bertha is a 26 y/o female who is seen in the office at the request of Dr. Rivas for evaluation of umbilical hernia. She states she first noticed the bulge at her umbilicus 3 years ago after having her son. She denies any skin changes from the bulge. The area has gotten slightly bigger over the years as well. Review of Systems Review of Systems: All systems reviewed & are unremarkable except as noted in HPI and below PMFSH Past Medical History Medical History Colonoscopy planned 12/09/2018 Encounter for insertion of mirena IUD mirena iud insertion 11/16/2019 Gestational hypertension Gestational thrombocytopenia Overweight on examination Vaginal irritation Surgical History Surgical History H/O bilateral salpingectomy (04/17/22) History of gynecological procedure childhood - vaginal tear requiring stitches ( fell on stool) History of gynecological procedure (03/19/22) mirena iud removal Family History Family History Grandparent Hypertension Colon cancer Osteoporosis Lung cancer Other Unknown family medical history Social History Social History Smoking status: Never smoker Second hand tobacco smoke exposure: No Alcohol intake: current Alcohol use details: 1xper month Substance use: never Substance use type: does not use Living arrangements: with family Additional living arrangements comments: Occupation/Education: occupation Additional occupation/education comments: [employer] Gender identity (if verbalized by the patient): Female Sexual Orientation (if Verbalized by the Patient): Straight or Heterosexual Spiritual care concerns: No Meds Home Medications and Allergies Home Medications Medication Instructions Recorded Confirmed Type mbqeqhhv-uqs-XZ 200 mcg-vit K 100 1 cap PO DAILY 04/08/22 09/02/22 History mcg-lycop 500 zhl-[id number]-H56 capsule (Daily Multivitamin) Allergies Allergy/AdvReac Type Severity Reaction Status Date / Time Sulfa (Sulfonamide Allergy Severe Anaphylaxis Verified 09/02/22 09:51 Antibiotics) azithromycin [From Zithromax] AdvReac Unknown Rash Verified 09/02/22 09:51 erythromycin base AdvReac Unknown Rash Verified 09/02/22 09:51 Vital Signs Vital Signs - 24 hr 09/02/22 09:40 Temperature 37.0 C Pulse Rate 86 Respiratory Rate 18 Blood Pressure 106/64 Pulse Oximetry 100 Oxygen Delivery Room Air Exam Const: General: cooperative, healthy appearing, comfortable and no acute distress Resp: Auscultation: clear to auscultation bilaterally Cardio: Rate: regular rate Rhythm: regular rhythm GI: Inspection: normal to inspection and non-distended GI Palp: No abdominal tenderness, Yes Soft to palpation, No Tenderness to palpation present (GI), No Guarding due to palpation present (GI) and No Rigid due to palpation Other: 1 cm umbilical hernia - minimal TTP Assessment and Plan Assessment and plan (1) Umbilical hernia without obstruction and without gangrene: Code(s): K42.9 - Umbilical hernia without obstruction or gangrene Status: Acute Assessment and Plan: will setup for repair concurrently c planned abdominoplasty
--- NOTE | 2022-09-02 10:57 | WPDHPUPDATE1 ---
History and Physical Update Update Date/Time: 09/02/22 10:57 History and Physical has been reviewed, including an updated exam of the patient. There are NO changes in the patient's condition. Risks, benefits, and alternatives have been discussed and questions answered. Patient agrees to proceed with procedure.
--- NOTE | 2022-09-02 12:06 | WPDHPUPDATE1 ---
History and Physical Update Update Date/Time: 09/02/22 12:06 History and Physical has been reviewed, including an updated exam of the patient. There are NO changes in the patient's condition. Risks, benefits, and alternatives have been discussed and questions answered. Patient agrees to proceed with procedure.
[2022-09-02] MEDS: KETOROLAC 15 MG/ML VIAL (*BKC) IV PUSH ×2 (12:10→17:14)
[2022-09-02] MEDS: ACETAMINOPHEN 500 MG TABLET 1000 MG PO (12:10)
--- NOTE | 2022-09-02 12:21 | W.PM.PROC2 ---
Procedure Note - Detailed Date of Procedure 09/02/22 Pre-op Diagnosis Skin Laxity, umbilical hernia Post-op Diagnosis Same Procedure Performed Progressive tension abdominoplasty Surgeon Pablito Huston MD Anesthesia General Findings Tissue removed 563 grams Description of Procedure They are here today for abdominoplasty. Previously and again today the risks, benefits, alternatives were discussed in extensive detail. I wanted them to be very realistic about the risks involved as well as expectations. She states if she has significant diastasis she would like to proceed with repair. She understands we may need a vertical scar at inferior scar (or raise the lower scar). We discussed aftercare and what to monitor for. I was very upfront about the risks of wound breakdown leading to loss of skin, open wounds, and need for additional procedures with permanent abdominal deformity. We discussed DVT/PE risks and management. Made sure answered all of their questions to their satisfaction today and consent was obtained. They were marked in the preoperative holding area with their verification. The patient was taken to the operating room placed supine on the operating table. Anesthesia was provided by anesthesiology. A Harper catheter was started. They were prepped and draped in a standard sterile fashion. A surgical time-out was taken. I placed the patient in a flexed position to verify the upper and lower markings would reach. I then placed supine. A thorough abdominal examination was completed. Stab incisions were made and tumescent solution infiltrated. A 10 blade was used to make the upper incision. I continued dissection down to the level of fascia. Elevated just what was necessary for repair of the diastasis. I then again flexed the bed to verify the upper skin flap would reach the lower markings without tension. Once verified I placed her supine once again and a 10 blade used to make the lower incision. I elevated up to level the umbilicus and left the umbilicus intact on a well-vascularized stalk. The intervening tissue was removed. A 2 mm blunt cannula with 0.5% bupivicaine was injected deep to the fascia bilaterally. At this point Dr. Hoffman entered and completed umbilical hernia repair. See his separate dictation for details. Her diastasis was 6 cm. I plicated the diastasis recti using 0 PDO stratafix barbed suture. This was in 2 separate layers using 2 separate sutures as well. I repaired around the umbilicus leaving plenty of room for well-vascularized stalk of the umbilicus with 2-0 PDS. The patient was flexed and starting from superior to inferior began plication using 2-0 Vicryl to obliterate all space in a standard progressive tension fashion. At the umbilicus I marked out the location of the skin and inset this with 3-0 Monocryl and 4-0 Vicryl. I continued the remainder of the plication using 2-0 Vicryl until I reached my lower planned scar line. I trimmed any excess skin of the upper flap making sure this was a tension-free closure. 15 Merary drain placed but not sutured. There was a vertical incision that was closed with 2-0 Vicryl, 3-0 Monocryl, 4-0 Monocryl and glue. I then approximated using a 3 point suture with 2-0 Vicryl followed by 3-0 stratafix ,running subcuticular 4-0 Monocryl, and tissue glue. Fluffs and an abdominal binder were placed. The patient was transferred to the bed in a flexed position. Awoken and taken to the PACU without difficulty. All instrument and sponge counts were correct at the end of the case. Estimated Blood Loss 50 Drains Yes (15 merary) Packing No Pathology None sent Complications No immediate complications Condition Stable Disposition PACU
[2022-09-02] MEDS: LACTATED RINGERS IRRIG 1,000 ML, LIDOCAINE HCL 1% LOCAL INJ 50 ML, EPINEPHrine HCL INJ ... INFILTRATE (12:52)
[2022-09-02] MEDS: ceFAZolin 2 GM/D5W 50 ML 2 GM/50 ML BAG IVPB (12:52)
[2022-09-02] MEDS: TRANEXAMIC ACID 1,000MG/ISO100 1,000 MG/100 ML BAG 200 MG IVPB (13:02)
--- NOTE | 2022-09-02 13:52 | W.PM.PROC2 ---
Procedure Note - Detailed Date of Procedure 09/02/22 Pre-op Diagnosis Umbilical hernia, defect measuring approximately 5 mm Post-op Diagnosis Same Procedure Performed primary repair 5 mm umbilical hernia Surgeon Dinah Hoffman MD Anesthesia General Indications 26-year-old female presenting with small umbilical hernia, patient reports that has been enlarging in size over the last few years. Patient also reports increased symptomatology. Findings Umbilical hernia measuring approximately 5 mm Description of Procedure The patient was in the operating room under general anesthesia and much of the dissection for abdominoplasty had already been completed. Please see Dr. Torres's operative report for details of his portion of the procedure. A time-out was then done to verify the patient's identity, as well as the procedure being performed. I began by dissecting inferiorly around the umbilicus to gain access to the umbilical hernia. Once identified, I dissected the hernia sac off the overlying umbilicus. I then dissected the hernia sac away and checked the contents of the hernia. There was noted to be some preperitoneal fat that was viable and normal appearing. This was reduced back into the abdominal cavity. Once reduced, this left an approximately 5 mm defect. Given the small size of the defect, primary repair was done. This was done with interrupted 0 Ethibond suture x3. The umbilical disruption was then sutured back to our fascial repair using 3-0 Vicryl suture. At this point, Dr. Torres will resume the abdominoplasty. Estimated Blood Loss 5 Complications No immediate complications Condition Stable [facility] Billing Surgery - Charge Forward: Surgery Billing
== END 2022-09-02 17:50 | disposition home or self-care (01) ==
PROVIDERS: Surgery; PCP Nurse Practitioner Family; Visit Provider Surgery Plastic and Reconstructive Surgery
PROC: (CPT 49593; principal; 2022-09-02 11:30)
DX: K42.9 Umbilical hernia without obstruction or gangrene (principal); L57.4 Cutis laxa senilis
CPT/HCPCS: 49593; 15830; 15847; 80307; A9270; J0171; J0690; J1100; J1885; J2250; J2405; J2704; J3010; J7120

== ENCOUNTER 2023-07-13 11:22 | Outpatient (CLI) | payer OTHER, SELFPAY ==
[2023-07-13 12:01] LABS: Hematocrit 40.5 % (37.0-47.0); Hemoglobin 13.3 g/dL (12.0-15.0); Mean Corpuscular HGB Conc 32.8 g/dl (32-36); Mean Corpuscular Hemoglobin 30.4 pg (26-34); Mean Corpuscular Volume 92.7 fl (80-100); Mean Platelet Volume 11.9 fl (7.4-10.4); Platelet Count Result 192 k/mm3 (150-375); Red Blood Count 4.37 M/mm3 (4.2-5.4); Red Cell Distribution Width 11.9 % (11.5-14.5); White Blood Count 6.5 K/mm3 (4.5-10.0)
[2023-07-13 12:26] LABS: Alanine Aminotransferase 12 U/L (6-35); Albumin Level 4.7 g/dL (3.5-5.1); Alkaline Phosphatase 45 U/L (38-126); Anion Gap 9 mmol/L (4-12); Aspartate Amino Transferase 20 U/L (14-36); Bilirubin,Total 0.5 mg/dL (0.2-1.3); Blood Urea Nitrogen 14 mg/dL (7-17); Calcium 9.5 mg/dL (8.4-10.2); Carbon Dioxide 26 mmol/L (22-30); Chloride 105 mmol/L (98-107); Estimated Glomerular Filt Rate > 60; Glucose 90 mg/dL (65-110); Sodium 140 mmol/L (137-145)
[2023-07-13 12:48] LABS: Thyroid Stimulating Hormone 0.782 uIU/mL (0.465-4.680)
[2023-07-13 13:02] LABS: Vitamin D 25 Hydroxy 42.6 ng/mL
== END 2023-07-13 11:23 | disposition home or self-care (01) ==
LOC: ANHLAB 11:24
PROVIDERS: PCP Family Medicine; Visit Provider Nurse Practitioner Family
DX: R55 Syncope and collapse (principal); R42 Dizziness and giddiness; R07.89 Other chest pain
CPT/HCPCS: 36415; 80053; 82306; 84443; 85027

== ENCOUNTER 2023-08-06 13:35 | Outpatient (CLI) | payer OTHER, SELFPAY ==
--- NOTE | 2023-08-06 13:59 | ECHO_ITS ---
Patient Info Name: Bertha Whittington Age: 27 years : 1995 Gender: Female Ht: 68 in Wt: 160 lbs BSA: 1.87 m2 HR: 68 bpm BP: 102 / 72 mmHg Heart Rhythm: Sinus Rhythm Technical Quality: Fair Exam Date: 08/06/2023 2:05 PM Exam Location: Echo Lab Patient Status: Outpatient Admit Date: 08/06/2023 Staff Ordering Physician: Altagracia Shields Facing Machine Operator: Benny Mejia RDCS Attending Provider: Altagracia Shields Referring Physician: Cornelius HERRERA; Exam Type: CA echo doppler color flow Study Info Indications R55 - Syncope and collapse Complete two-dimensional, color flow and Doppler transthoracic echocardiogram is performed. Summary 1. Left ventricular chamber dimension is normal. 2. Left ventricular systolic function is normal, estimated at 65-70%. 3. The left ventricular diastolic function is normal. 4. Right ventricular systolic function is normal. 5. No valvular disease. Left Ventricle Left ventricular chamber dimension is normal. Left ventricular systolic function is normal, estimated at 65-70%. There is no increased left ventricular wall thickness. The left ventricular diastolic function is normal. Right Ventricle Right ventricular chamber dimension is normal. Right ventricular systolic function is normal. Left Atria Left atrial chamber dimension is normal. Right Atria Right atrial chamber dimension is normal. Atrial Septum Intact interatrial septum visualized by color flow imaging. Aortic Valve The aortic valve is probable trileaflet. There is no aortic valve stenosis. There is no aortic valve regurgitation. Pulmonic Valve The pulmonic valve is not well visualized. Mitral Valve There is trace mitral valve regurgitation. Tricuspid Valve There is trace tricuspid valve regurgitation. Pericardium/Pleural There is no pericardial effusion. Inferior Vena Cava Normal inferior vena cava with >50% collapse upon inspiration consistent with normal right atrial pressure, 3 mmHg. Aorta The aortic root size at the sinus of Valsalva is normal. Left Ventricular Outflow Tract Name Value Normal LVOT 2D LVOT Diameter 1.9 cm LVOT Doppler LVOT Peak Gradient 6 mmHg LVOT Mean Gradient 3 mmHg LVOT VTI 22 cm LVOT VTI/AV VTI Ratio 0.8 LVOT Stroke Volume 64 ml LVOT CO 4.6 l/min LVOT CI 2.5 l/min/m2 Pulmonic Valve Name Value Normal RVOT Doppler RVOT Peak Gradient 3 mmHg PV Doppler PV Peak Gradient 5 mmHg Mitral Valve Name Value Normal
== END 2023-08-06 13:36 | disposition home or self-care (01) ==
LOC: ANHCARD 13:36
PROVIDERS: PCP Family Medicine; Visit Provider Nurse Practitioner Family
DX: R55 Syncope and collapse (principal)
CPT/HCPCS: 93306

== ENCOUNTER 2024-07-07 08:05 | Outpatient (CLI) | payer OTHER, SELFPAY ==
--- OUTSIDE RECORDS SUMMARY | 2024-07-07 08:16 | XMS_ITS | CONTINUITY OF CARE DOCUMENT ---
Author Name doyleoridoyleroxiloyd Address Unknown Organization [facility] Address [address] [place] [address] [address] [place] [address] Phone [phone] Care Team Providers Care Bill Sorter Name Role Phone Celestina CROWELL, Gerardo Rayo Unavailable BENJA HORVATH Unavailable [phone] HOPBENJA RAYA Unavailable [phone] PROBLEMS Condition Status Date Provider Notes Near syncope active Gerardo Oscar MD Fatigue active Gerardo Oscar MD Palpitations active Gerardo Oscar MD Chest discomfort active Gerardo Oscar MD Syncope and collapse active Gerardo wallis MD SARS-associated coronavirus active Gerardo Oscar MD ENCOUNTERS Date Type Provider Location Encounter Diag nosis 5 - 2 In-person encounter Office Visit Gerardo Oscar MD [facility] Near syncopeFatiguePalpitationsChest discomfortSyncope and collapseSARS-associated coronavirus VITAL SIGNS Date Observation Value Provider Body Mass Index (Ratio) 23.45 kg/m2 Keren Oscar MD blood pressure, diastolic 65 mm[Hg] Lakeshia nkLogic blood pressure, systolic 107 mm[Hg] Caroline kLogic blood pressure, cuff size regular Tr italo Munoz blood pressure, diastolic 65 mm[Hg] Tr italo Munoz blood pressure, systolic 107 mm[Hg] Try augustus Munoz oxygen saturation, oximetry 99 % Suraj Munoz respiratory rate E&M 16 /min Suraj Alexander pulse rate 79 /min Kevinaugustus Alexander weight E&M 158.8 [lb_av] Suraj burgos height E&M 69 [in_i] Suraj Munoz SOCIAL HISTORY Date Observation Value Provider social history E&M S moking History: P maría has never smoked. Gerardo Oscar MD social history reviewed E&M revi ewed - no changes required Gerardo Oscar MD smoking status Never smoker Suraj robles FAMILY HISTORY Family Member Condition First Degree Blood Relative No Known Rel ative INSURANCE PROVIDERS Payer name Policy type / Coverage type [place] red alliance party ID [facility] [id number] Other [id number] TREATMENT PLAN Date Name Performer [id number],S,c heck for stress test, await blood work Gerardo Oscar MD [id number],S,a paprently goes up flights of steps, doesnt take elevators , however pre- would have been able to go up steps, post preg notes of limitation in getting up 5 or 6 flights of steps, without getting centralized chest pressure and SOB Gerardo Oscar MD [id number],C,vaccniated, p fizer ,never had covid Gerardo Oscar MD [id number],C,u nlikely any seizure activity occured, most likely has cardiac arrythmia, suspect SVT await blood work to eval for thyroid issue, hopefully tsh was orderd. will obtain 2D echo to eval for mitral valve prolapse. 2 week tele monitor exercise treadmill stress test without nuclear Gerardo Oscar MD [id number],S,t charan monitor 2 weeks check tsh Gerardo Oscar MD Cardiology:check for stress test , await blood work Gerardo Oscar MD Cardiology:apaprentl y goes up flights of steps, doesnt take elevators , however pre- would have been able to go up steps, post preg notes of limitation in getting up 5 or 6 flights of steps, without getting centralized chest pressure and SOB Gerardo Oscar MD Cardiology:vaccniated, pfizer ,n ever had covid Gerardo Oscar MD Cardiology:unlikely any seizure activity occured, most likely has cardiac arrythmia, suspect SVT await blood work to eval for thyroid issue, hopefully tsh was orderd. will obtain 2D echo to eval for mitral valve prolapse. 2 week tele monitor exercise treadmill stress test without nuclear Gerardo Oscar MD Cardiology:tele caridad tor 2 weeks check tsh Gerardo Oscar MD Date Name Monitor - Telemetry (Mobile Cardiac) Stress Routine Complete Echo HISTORY OF PROCEDURES Procedure Date Procedure Name Provider Procedure Notes S tatus Event Monitor Gerardo Oscar MD co mpleted
--- OUTSIDE RECORDS SUMMARY | 2024-07-07 08:16 | XMS_ITS ---
Author Organization [facility] Address [address] [place] [address] Care Team Providers Care Order Checker Name Role Phone StarCristin marquezyla Primary Care Provider Rajesh Marcos Unavailable [phone] ALLERGIES Allergen (clinical drug ingredient) Drug/Non Drug Allergy documented on EMR Reaction Allergy Type Onset Date Status Sulfacet-R Unknown Drug Allergy Active Azithromycin Unknown Drug Allergy Acti ve REASON FOR VISIT f/u after PT MEDICATIONS Medication SIG (Take, Route, Frequency, Duration) Notes Start Date End Date Status Cyclobenzaprine HCl 5 MG 1 tablet Orally three times daily s needed for spasm. MAY CAUSE DROWSINESS/GROGGINESS for 30 day(s) PRN 03/03/2024 Active methylPREDNISolone 4 MG as directed Oral ly for 6 days 03/03/2024 Not-Taking traMADol HCl 50 MG 1 tablet as needed Orally every 4-6 hours for 7 days 09/14/2020 Not-Taking Multivitamin Active Naproxen 500 MG 1 tablet with food o r milk as needed Orally every 12 hrs for 90 days 03/03/2024 Active PROBLEMS Problem Type ICD Code Onset Dates Problem Status W/U Status Risk SNOMED Code Notes Problem Cervical pain (neck) (M54.2) Active confirmed Neck pain (09386026) VITAL SIGNS BMI 23.63 kg/m2 06/02/2024 Height 69 in 06/02/2024 Weight 160 lbs 06/02/2024 Encounters Encounter Location Date Provider Diagnosis [facility] [address] [place] [address] 06/02/2024 Rajesh Green Cervical pain (neck) M54.2 and Other low back pain M54.59 ASSESSMENTS Encounter Date Diagnosis Assessment Notes Treatment Notes Treatment Clinical Notes 06/02/2024 Cervical pain (neck) (ICD-10 - M54.2) 06/02/2024 Other low back pain (ICD-10 - M54.59) PLAN OF TREATMENT No Information Progress Notes * Examination Category Sub-Category Detail Notes General Examination GENERAL: Patient is a lert and cooperative. She moves about the room without difficulty. She does not walk with a list/limp NECK: No tenderness to pal pation, no spasm, near full ROM. Spurling's test negative HEART: Regular rate and rhy thm LUNGS: Clear to auscultatio n in all mejia ABDOMEN: No tenderness to pal pation, bowel sounds present all four quadrants NEUROLOGIC: UE and LE neurologic exam reveals symmetric DTR's, intact sensation, 5+/5+ motor strength. SLR testing negative SKIN: No evidence of skin rashes or dermal lesions MUSCULOSKELETAL: Thoracic exam reveal s no tenderness to palpation, no spasm. Lumbar exam reveals no tenderness to palpation, no tension. No scar. Lumbar ROM reveals FF 130 degrees, EXT 45 degrees, SB 65 degrees. Lumbosacral exam reveals no tenderness to palpation involving SI region. Pelvis is well balanced PSYCHIATRIC: Mood and affect appe ar normal HEENT: No masses, PERRLA, E OM intact, no nasal drainage, no lymphadenopathy JOINTS: Hip log roll testing negative. Hip ROM full. FABERE test negative HEMATOLOGIC: No evidence of exces sive bruising or bleeding
--- OUTSIDE RECORDS SUMMARY | 2024-07-07 08:16 | XMS_ITS | Patient Health Record ---
Author Organization [facility] Address [address] [facility] [address] [place] [address] Care Team Providers Care Medical Lead Name Role Phone Altagracia Shields Primary Care Provider Rajesh Marcos Unavailable [phone] ALLERGIES Allergen (clinical drug ingredient) Drug/Non Drug Allergy documented on EMR Reaction Allergy Type Onset Date Status Sulfacet-R Unknown Drug Allergy Active Azithromycin Unknown Drug Allergy Acti ve RESULTS Component Value Reference Range Notes X ray : Lumbar spine 5 views , AP, Lateral, Spot, Flexion and Extension Reviewed date:03/03/2024 11:53:24 AM Interpretation:[id number] Performing Lab: Notes/Report: 946 REASON FOR REFERRAL Reason DIAGNOSES: back pain , DDD, radiculopathy, facet DJD, neck pain 3 times per week for 3 weeks eval and treat, exercise, modalities per therapist's discretion; HEP Referral Organization [facility] Referring Provider First Name Rajesh Referring Provider Last Name Peter Referring Provider Speciality Orthopedic Surgery Referred Provider Specialty Physical The rapy Referral Priority Routine Reason DIAGNOSES: back pain , SI enthesopathy, DDD, hip pain, hip bursitis, IT band syndrome eval and treat, exercise, modalities per therapist's discretion; HEP 6 visits sacroiliac mobilization/stabilization Referral Organization [facility] Referring Provider First Name Rajesh Referring Provider Pilo Name Peter Referring Provider Speciality Orthopedic Surgery Referred Provider Specialty Physical The rapy Referral Priority Routine MEDICATIONS Medication SIG (Take, Route, Frequency, Duration) [...] W/U Status Risk SNOMED Code Notes Problem HNP (herniated nucleus pulposus), lumbar (M51.26) Active confirmed Displacement of lumbar intervertebral disc without myelopathy (92537095) Problem Sciatica, left side (M54.32) Active confirmed Left side sciatica (391368539224456) Problem Lumbago with sciatica (M54.40) Active confirmed Lumbago with sciatica (436197625) Problem 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 Lumbosacral spondylosis without myelopathy (40109961) Problem Unequal limb length (acquired), right femur (M21.751) Active confirmed Unequal lower limb length due to acquired shortening of right femur (disorder) (868342361485997) Problem Unequal limb length (acquired), unspecified site (M21.70) Active confirmed Acquired unequa l limb length (400409728768509) Problem Cervical pain (neck) (M54.2) Active confirmed Neck pain (00953375) VITAL SIGNS Height 69 in 06/02/2024 Weight 160 lbs 06/02/2024 BMI 23.63 kg/m2 06/02/2024 Encounters Encounter Location Date Provider Diagnosis [facility] [address] [address] 03/03/2024 Rajesh Green Other low back pain M54.59 ; Disc Degeneration, Lumbar Region with Leg Pain M51.361 ; Lumbar radiculopathy M54.16 ; 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 ; Cervical pain (neck) M54.2 and Unequal limb length (acquired), right femur M21.751 [facility] [address] [facility] [address] [place] [address] 04/06/2024 Rajesh Green [facility], [address] [facility] [address] [place] [address] 04/11/2024 Rajesh Green [facility], [address] [facility] [address] [place] [address] 04/21/2024 Rajesh Green Other low back pain M54.59 ; Disc Degeneration, Lumbar Region with Leg Pain M51.361 ; Lumbar radiculopathy M54.16 ; 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 ; Cervical pain (neck) M54.2 and Unequal limb length (acquired), unspecified site M21.70 [facility], [address] [facility] [address] [place] [address] 06/02/2024 Rajesh Green Cervical pain (neck) M54.2 and Other low back pain M54.59 ASSESSMENTS Encounter Date Diagnosis Assessment Notes Treatment Notes Treatment Clinical Notes 03/03/2024 Other low back pain (ICD-10 - M54.59) 04/21/2024 Other low back pain (ICD-10 - M54.59) 06/02/2024 Cervical pain (neck) (ICD-10 - M54.2) 03/03/2024 Disc Degeneration, Lumbar Region with Leg Pain (ICD-10 - M51.361) 04/21/2024 Disc Degeneration, Lumbar Region with Leg Pain (ICD-10 - M51.361) 06/02/2024 Other low back pain (ICD-10 - M54.59) 03/03/2024 Lumbar radiculopathy (ICD-10 - M54.16) 04/21/2024 Lumbar radiculopathy (ICD-10 - M54.16) 03/03/2024 Facet degeneration o f lumbar region (ICD-10 - M47.816) 04/21/2024 Facet degeneration o f lumbar region (ICD-10 - M47.816) 03/03/2024 Cervical pain (neck) (ICD-10 - M54.2) 04/21/2024 Cervical pain (neck) (ICD-10 - M54.2) 03/03/2024 Unequal limb length (acquired), right femur (ICD-10 - M21.751) 04/21/2024 Unequal limb length (acquired), unspecified site (ICD-10 - M21.70) PLAN OF TREATMENT No Information Insurance Providers Payer Name Payer Address Payer Phone Subscriber Number Group Number Insured Name Patient Relationship to Insured Coverage Start Date Coverage End Date [facility] [address] [address] [place] [address] [id number] Bertha Whittington Self - patient is the insured MEDICAL (GENERAL) HISTORY Medical History History ICD Code Back pain Numbness in feet Herniated disc IBS Constipation Denies h/o emotional/psychiatric disorde r Denies h/o drug/chemical dependency Surgical History Surgery Date(Month/Year) Tubes 1999, 2001 Colonoscopy 2018 [place] salpingectomy 2022 Abdominoplasty with hernia repair 2022
--- OUTSIDE RECORDS SUMMARY | 2024-07-07 08:16 | XMS_ITS ---
Author Organization [facility] Address [address] [place] [address] Care Team Providers [employer] Worker Name Role Phone CorneliusCristinAltagracia Primary Care Provider Rajesh Marcos Unavailable [phone] ALLERGIES Allergen (clinical drug ingredient) Drug/Non Drug Allergy documented on EMR Reaction Allergy Type Onset Date Status Sulfacet-R Unknown Drug Allergy Active Azithromycin Unknown Drug Allergy Acti ve REASON FOR REFERRAL Reason DIAGNOSES: back pain , SI enthesopathy, DDD, hip pain, hip bursitis, IT band syndrome eval and treat, exercise, modalities per therapist's discretion; HEP 6 visits sacroiliac mobilization/stabilization Referral Organization [facility] Referring Provider First Name Rajesh Referring Provider Last Name Peter Referring Provider Speciality Orthopedic Surgery Referred Provider Specialty Physical [facility] Referral Priority Routine REASON FOR VISIT f/u after PT MEDICATIONS Medication SIG (Take, Route, Frequency, Duration) Notes Start Date End Date Status Multivitamin Active Naproxen 500 MG 1 tablet with food o r milk as needed Orally every 12 hrs for 90 days 03/03/2024 Active methylPREDNISolone 4 MG as directed Oral ly for 6 days 03/03/2024 Not-Taking Cyclobenzaprine HCl 5 MG 1 tablet Orally three times daily s needed for spasm. MAY CAUSE DROWSINESS/GROGGINESS for 30 day(s) 03/03/2024 Active traMADol HCl 50 MG 1 tablet as needed Orally every 4-6 hours for 7 days 09/14/2020 Not-Taking PROBLEMS Problem Type ICD Code Onset Dates Problem Status W/U Status Risk SNOMED Code Notes Problem Unequal limb length (acquired), unspecified site (M21.70) Active confirmed Acquired unequal limb length ([id number]) VITAL SIGNS BMI 23.63 kg/m2 04/21/2024 Height 69 in 04/21/2024 Weight 160 lbs 04/21/2024 Encounters Encounter Location Date Provider Diagnosis [facility] [address] [place] [address] 04/21/2024 Rajesh Green Other low back pain M54.59 ; Disc Degeneration, Lumbar Region with Leg Pain M51.361 ; Lumbar radiculopathy M54.16 ; 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 ; Cervical pain (neck) M54.2 and Unequal limb length (acquired), unspecified site M21.70 ASSESSMENTS Encounter Date Diagnosis Assessment Notes Treatment Notes Treatment Clinical Notes 04/21/2024 Other low back pain (ICD-10 - M54.59) 04/21/2024 Disc Degeneration, Lumbar Region with Leg Pain (ICD-10 - M51.361) 04/21/2024 Lumbar radiculopathy (ICD-10 - M54.16) 04/21/2024 Facet degeneration o f lumbar region (ICD-10 - M47.816) 04/21/2024 Cervical pain (neck) (ICD-10 - M54.2) 04/21/2024 Unequal limb length (acquired), unspecified site (ICD-10 - M21.70) PLAN OF TREATMENT Referrals Referral Date Details DIAGNOSES: back pain , SI enthesopathy, DDD, hip pain, hip bursitis, IT band syndrome eval and treat, exercise, modalities per therapist's discretion; HEP 6 visits sacroiliac mobilization/stabilization Progress Notes * Examination Category Sub-Category Detail Notes General Examination GENERAL: Patient is a lert and cooperative. She moves about the room without significant difficulty. She does not walk with a list/limp NECK: Tension, but no spas m. Cervical ROM near normal. Spurling's test negative HEART: Regular rate and rhy thm LUNGS: Clear to auscultatio n in all mejia ABDOMEN: No tenderness to pal pation, bowel sounds present all four quadrants NEUROLOGIC: UE and LE neurologic exam reveals symmetric DTR's, intact sensation, 5+/5+ motor strength. Stacie's sign negative. SLR testing negative. No clonus, negative Babinski's sign involving LE's SKIN: No evidence of skin rashes or dermal lesions MUSCULOSKELETAL: Thoracic exam reveal s no tenderness to palpation, no spasm. Lumbar exam reveals tension involving L. lumbosacral junction. Lumbar ROM reveals FF 110 degrees, EXT 45 degrees, SB 60 degrees. Lumbosacral exam reveals focal tenderness to palpation involving L. SI region aggravated with reversed extension test. Gaenslen's sign positive PSYCHIATRIC: Mood and affect appe ar normal HEENT: No masses, PERRLA, E OM intact, no nasal drainage, no lymphadenopathy JOINTS: L. hip exam reveals full ROM. Tenderness over L. hip trochanteric bursa and along proximal L. IT band. Pressure along these sites reproduces complaints HEMATOLOGIC: No evidence of exces sive bruising or bleeding Consultation Request Notes Referral Date Referring Provider Referred Provider Not es 04/21/2024 Rajesh Green , DIAGNOSES: b ack pain, SI enthesopathy, DDD, hip pain, hip bursitis, IT band syndrome eval and treat, exercise, modalities per therapist's discretion; HEP 6 visits sacroiliac mobilization/stabilization
--- OUTSIDE RECORDS SUMMARY | 2024-07-07 08:17 | XMS_ITS | Data Portability ---
Author Organization [place] - [facility] [employer], Main Office Address [address] [place] [address] Assessment Encounter Date Assessment Date Assessment LastModified by Organization Details LastModified Time 12/29/2022 12/29/2022 WEMonik- 12/29/22 [employer]- [employer]- Artis Call office if worse, ER if life threatening illness RTC in 1 year and PRN She voices understanding of plan and agrees [email or web address] Not available 12/29/2022 16:48:31 Plan of Treatment Reminders Order Date Submit Date Provider Last Modified By Organization Details Last Modified Time Details Appointments None record ed. Lab None record ed. Referral None record ed. Procedures None record ed. Surgeries None record ed. Imaging None record ed. Medication Orders None record ed. Patient TargetsNo targets recorded. Patient Instructions Encounter Date Encounter Id Patient Instructions Last Modified By Organization Details Last Modified Time 12/29/2022 [id number] INFLUENZA VACCIN E TD/TDAP Recommended today, patient declined Ordered P atient will get at local pharmacy/health department MAMMOGRAM Recommended today, but patient declined Ordered N o screening indicated at this time/ no family history CERVICAL SCREENING/PELVIC EXAMINATION No screening necessary patient is up to date COLORECTAL SCREENING Recommended today, but patient declined Ordered C olonoscopy declined. Cologuard ordered No screening necessary until age 45 DEPRESSION SCREENING Negative BMI Overweight Appropr iate NUTRITION Continue healthy eating & exercise PHYSICAL ACTIVITY Appropriate Recommendation of 10-20 minutes of activity that causes mild breathlessness daily Recommendati on of 30 minutes of daily activity VISION Ordered Recommende d today ALCOHOL USE No alcohol use Occasional/Soc ial Use TOBACCO USE non smoker SEXUALLY ACTIVE Yes, Patient is in monogamous relationship GLUCOSE SCREENING LIPID SCREENING Not available 12/29/2022 16:49:22 Reason for Referral None Reported. Results Created Date Observation Date Name Description Value Unit Range Abnormal Flag Note LastModifiedBy Organization Detail LastModifiedTime 09/05/19 21 09/04/2020 pregn jose test, urine HCG negati ve Not Available [facility] [place] [address], [address], [place], [address], 09/04/2020 17:21:27 01/18/20 21 01/17/2021 FOLAT E, SERUM /PLAS MA folate 17.3 NG/mL 2.76- Not Available [facility] (Lab) [address] [place], [address], 01/17/2021 14:29:09 01/18/20 21 01/17/2021 VITAM IN B12 (ROMELIA MARY ALICE ) vb12 418 pg/mL 239-93 1 Not Available [facility] (Lab) [address] [place], [address], 01/17/2021 14:29:05 01/18/20 21 01/17/2021 YENNI TIN ferritin 12 NG/mL 6.24-1 37 Not Available [facility] (Lab) [address] [place], [address], 01/17/2021 13:57:04 01/18/20 21 01/17/2021 TSH thyroid-stim ulating hormone 1.060 uIU/m L 0.465- 4.680 Not Available [facility] (Lab) [address] [place], [address], 01/17/2021 13:48:43 01/18/20 21 01/17/2021 T4 FREE free T4 1.06 NG/dL 0.78-2 .19 Not Available [facility] (Lab) [address] [place], [address], 01/17/2021 13:47:00 01/18/20 21 01/17/2021 B-HCG TOTAL , QUANT ITATI VE human chorionic gonadotropin <2.39 mIU/m L 0.00-4 .82 WEEKS OF PREGN JOSE REFER ENCE RANGE S 4 420 TO 6,230 5 620 TO 29,30 0 6 3,660 TO 108,0 00 7 10,90 0 TO 148,0 00 8 30,70 0 TO 184,0 00 9 67,20 0 TO 169,0 00 10 30,00 0 TO 167,0 00 14 15,00 0 TO 92,10 0 15 10,60 0 TO 64,20 0 16 9,000 TO 52,80 0 17 6,700 TO 47,10 0 18 6,100 TO 42,10 0 19 6,800 TO 42,90 0 Not Available [facility] (Lab) [address] [place], [address], 01/17/2021 13:46:59 01/18/20 21 01/17/2021 IRON/ TIBC PANEL total iron binding capacity 339 mcg/d L 265-47 5 Not Available [facility] (Lab) [address] [place], [address], 01/17/2021 13:46:46 01/18/20 21 01/17/2021 IRON/ TIBC PANEL % transferrin saturation 19 % 20-55 low Not Available [facility] (Lab) [address] [place], [address], 01/17/2021 13:46:46 01/18/20 21 01/17/2021 IRON/ TIBC PANEL unsaturated iron bind capacity 273 mcg/d L 126-38 2 Not Available [facility] (Lab) [address] [place], [address], 01/17/2021 13:46:46 01/18/20 21 01/17/2021 IRON/ TIBC PANEL iron 66 mcg/d L 42-175 Not Available [facility] (Lab) [address] [place], [address], 01/17/2021 13:46:46 01/18/20 21 01/17/2021 MAGNE SIUM magnesium 1.9 mg/dL 1.6-2. 3 Not Available [facility] (Lab) [address] [place], [address], 01/17/2021 13:46:30 01/18/20 21 01/17/2021 COMPR EHENS TERRELL METAB OLIC PANEL sodium 143 mmol/ L 137-14 5 Not Available [facility] (Lab) [address] [place], [address], 01/17/2021 13:46:26 01/18/20 21 01/17/2021 COMPR EHENS TERRELL METAB OLIC PANEL potassium 4.3 mmol/ L 3.5-5. 1 Not Available [facility] (Lab) [address] [place], [address], 01/17/2021 13:46:26 01/18/20 21 01/17/2021 COMPR EHENS TERRELL METAB OLIC PANEL chloride 105 mmol/ L 98-107 Not Available [facility] (Lab) [address] [place], [address], 01/17/2021 13:46:26 01/18/20 21 01/17/2021 COMPR EHENS TERRELL METAB OLIC PANEL carbon dioxide 30 mmol/ L 22-30 Not Available [facility] (Lab) [address] [place], [address], 01/17/2021 13:46:26 01/18/20 21 01/17/2021 COMPR EHENS TERRELL METAB OLIC PANEL agap 12.3 mmol/ L 14-22 low Not Available [facility] (Lab) [address] [place], [address], 01/17/2021 13:46:26 01/18/20 21 01/17/2021 COMPR EHENS TERRELL METAB OLIC PANEL glucose 86 mg/dL 70-99 Not Available [facility] (Lab) [address] [place], [address], 01/17/2021 13:46:26 01/18/20 21 01/17/2021 COMPR EHENS TERRELL METAB OLIC PANEL BUN 13 mg/dL 8-19 Not Available [facility] (Lab) [address] [place], [address], 01/17/2021 13:46:26 01/18/20 21 01/17/2021 COMPR EHENS TERRELL METAB OLIC PANEL creatinine 0.87 mg/dL 0.66-1 .25 Not Available [facility] (Lab) [address] [place], [address], 01/17/2021 13:46:26 01/18/20 21 01/17/2021 COMPR EHENS TERRELL METAB OLIC PANEL GFR >60 Refer ence Range : [place] GFR Healt hy Adult : >60 mL/mi n/1.7 3 m2 Chron ic Kidne y Disea se: 15-60 mL/mi n/1.7 3 m2 Kidne y Failu re: <15/m L/min /1.73 m2 www.n iddk. nih.g ov MDRD study equat ion hasn' t been valid ated in child мария <18 yrs of age, pregn ant women , the elder ly >85 yrs of age, or in some racia l or ethni c subgr oups, such as [facility] nics. Outsi de the valid ated quirino eters , estim ated GFR is less accur ate requi ring clini leif judgm ent on a case by case basis . Clini leif inter preta tion for other races and ages must be made by the clini jose . Futhe rmore , any of the limit ation s with the use of serum creat inine relat ed to nutri pura l statu s or medic ation usage hasn' t accou nted for the MDRD Study equat ion. For perso ns <18 yrs of age, a pedia tric GFR calcu lator can be locat ed on the [facility] websi te: https ://elis nam.glory reyes.o rg/pr ofess ional s/kdo qi/gf r_cal culat or Not Available [facility] (Lab) [address] [place], [address], 01/17/2021 13:46:26 01/18/20 21 01/17/2021 COMPR EHENS TERRELL METAB OLIC PANEL alkaline phosphatase 50 U/L 38-126 Not Available [facility] (Lab) [address] [place], [address], 01/17/2021 13:46:26 01/18/20 21 01/17/2021 COMPR EHENS TERRELL METAB OLIC PANEL alanine aminotransfe rase 13 U/L 0-35 Not Available [facility] (Lab) [address] [place], [address], 01/17/2021 13:46:26 01/18/20 21 01/17/2021 COMPR EHENS TERRELL METAB OLIC PANEL aspartate aminotransfe rase 25 U/L 15-37 Not Available [facility] (Lab) [address] [place], [address], 01/17/2021 13:46:26 01/18/20 21 01/17/2021 COMPR EHENS TERRELL METAB OLIC PANEL bilirubin, total 0.50 mg/dL 0.20-1 .30 Not Available [facility] (Lab) [address] [place], [address], 01/17/2021 13:46:26 01/18/20 21 01/17/2021 COMPR EHENS TERRELL METAB OLIC PANEL calcium 9.5 mg/dL 8.4-10 .2 Not Available [facility] (Lab) [address] [place], [address], 01/17/2021 13:46:26 01/18/20 21 01/17/2021 COMPR EHENS TERRELL METAB OLIC PANEL total protein 7.5 g/dL 6.3-8. 2 Not Available [facility] (Lab) [address] [place], [address], 01/17/2021 13:46:26 01/18/20 21 01/17/2021 COMPR EHENS TERRELL METAB OLIC PANEL albumin 4.5 g/dL 3.4-5. 0 Not Available [facility] (Lab) [address] [place], [address], 01/17/2021 13:46:26 01/18/20 21 01/17/2021 COMPR EHENS TERRELL METAB OLIC PANEL globulin 3.0 g/dL 2.6-4. 2 Not Available [facility] (Lab) [address] [place], [address], 01/17/2021 13:46:26 01/18/20 21 01/17/2021 COMPR EHENS TERRELL METAB OLIC PANEL A/G ratio 1.5 ratio 1.0-2. 0 Not Available [facility] (Lab) [address] [place], [address], 01/17/2021 13:46:26 01/18/20 21 01/17/2021 VITAM IN D 25-HY DROXY [id number] 49.0 NG/mL 30-100 Vitam in D Statu s: Defic ient: <20 ng/mL Insuf ficie nt: 20-29 ng/mL Suffi cient : 30-10 0 ng/mL Not Available [facility] (Lab) [address] [place], [address], 01/17/2021 13:42:09 01/18/20 21 01/17/2021 CBC/C OMPLE TE BLD COUNT W/DIF F white blood cells 6.3 x10'3 /uL 4.2-10 .8 Not Available [facility] (Lab) [address] [place], [address], 01/17/2021 13:00:49 01/18/20 21 01/17/2021 CBC/C OMPLE TE BLD COUNT W/DIF F red blood cells 4.53 x10'6 /uL 3.80-5 .20 Not Available [facility] (Lab) [address] [place], [address], 01/17/2021 13:00:49 01/18/20 21 01/17/2021 CBC/C OMPLE TE BLD COUNT W/DIF F hemoglobin 14.3 g/dL 12.0-1 5.6 Not Available [facility] (Lab) [address] [place], [address], 01/17/2021 13:00:49 01/18/20 21 01/17/2021 CBC/C OMPLE TE BLD COUNT W/DIF F hematocrit 43.2 % 35.7-4 5.7 Not Available [facility] (Lab) [address] [place], [address], 01/17/2021 13:00:49 01/18/20 21 01/17/2021 CBC/C OMPLE TE BLD COUNT W/DIF F mean red cell volume 95.4 fL 82.0-9 9.0 Not Available [facility] (Lab) [address] [place], [address], 01/17/2021 13:00:49 01/18/20 21 01/17/2021 CBC/C OMPLE TE BLD COUNT W/DIF F mean red cell hemoglobin 31.6 pg 27.0-3 3.0 Not Available [facility] (Lab) [address] [place], [address], 01/17/2021 13:00:49 01/18/20 21 01/17/2021 CBC/C OMPLE TE BLD COUNT W/DIF F mean RBC HGB concentratio n 33.1 g/dL 31.0-3 6.0 Not Available [facility] (Lab) [address] [place], [address], 01/17/2021 13:00:49 01/18/20 21 01/17/2021 CBC/C OMPLE TE BLD COUNT W/DIF F red cell distribution width 11.9 % 11.8-1 5.5 Not Available [facility] (Lab) [address] [place], [address], 01/17/2021 13:00:49 01/18/20 21 01/17/2021 CBC/C OMPLE TE BLD COUNT W/DIF F platelets 196 x10'3 /uL 150-40 0 Not Available [facility] (Lab) [address] [place], [address], 01/17/2021 13:00:49 01/18/20 21 01/17/2021 CBC/C OMPLE TE BLD COUNT W/DIF F mean platelet volume 12.2 fL 9.0-12 .4 Not Available [facility] (Lab) [address] [place], [address], 01/17/2021 13:00:49 01/18/20 21 01/17/2021 CBC/C OMPLE TE BLD COUNT W/DIF F neutrophils 70.5 % 39.0-7 2.0 Not Available [facility] (Lab) [address] [place], [address], 01/17/2021 13:00:49 01/18/20 21 01/17/2021 CBC/C OMPLE TE BLD COUNT W/DIF F lymphocytes 20.6 % 16.0-4 7.0 Not Available [facility] (Lab) [address] [place], [address], 01/17/2021 13:00:49 01/18/20 21 01/17/2021 CBC/C OMPLE TE BLD COUNT W/DIF F monocytes 7.2 % 5.0-12 .0 Not Available [facility] (Lab) [address] [place], [address], 01/17/2021 13:00:49 01/18/20 21 01/17/2021 CBC/C OMPLE TE BLD COUNT W/DIF F eosinophils 1.1 % 1.0-7. 0 Not Available [facility] (Lab) [address] [place], [address], 01/17/2021 13:00:49 01/18/20 21 01/17/2021 CBC/C OMPLE TE BLD COUNT W/DIF F basophils 0.3 % 0.0-2. 0 Not Available [facility] (Lab) [address] [place], [address], 01/17/2021 13:00:49 01/18/2001/17/2021 CBC/C OMPLE TE BLD COUNT W/DIF F immature granulocytes 0.3 % 0.00-0 .50 Not Available [facility] (Lab) [address] [place], [address], 01/17/2021 13:00:49 01/18/20 21 01/17/2021 CBC/C OMPLE TE BLD COUNT W/DIF F neutrophils, absolute count 4.42 x10'3 /uL 1.5-8. 0 Not Available [facility] (Lab) [address] [place], [address], 01/17/2021 13:00:49 01/18/20 21 01/17/2021 CBC/C OMPLE TE BLD COUNT W/DIF F lymphocytes, absolute count 1.29 x10'3 /uL 1.07-3 .43 Not Available [facility] (Lab) [address] [place], [address], 01/17/2021 13:00:49 01/18/20 21 01/17/2021 CBC/C OMPLE TE BLD COUNT W/DIF F monocytes, absolute count 0.45 x10'3 /uL 0.29-0 .99 Not Available [facility] (Lab) [address] [place], [address], 01/17/2021 13:00:49 01/18/20 21 01/17/2021 CBC/C OMPLE TE BLD COUNT W/DIF F eosinophils, absolute count 0.07 x10'3 /uL 0.02-0 .53 Not Available [facility] (Lab) [address] [place], [address], 01/17/2021 13:00:49 01/18/20 21 01/17/2021 CBC/C OMPLE TE BLD COUNT W/DIF F basophils, absolute count 0.02 x10'3 /uL 0.01-0 .08 Not Available [facility] (Lab) [address] [place], [address], 01/17/2021 13:00:49 01/18/20 21 01/17/2021 CBC/C OMPLE TE BLD COUNT W/DIF F immature granulocytes ,absolute 0.02 x10'3 /uL 0.00-0 .05 Not Available [facility] (Lab) [address] [place], [address], 01/17/2021 13:00:49 01/18/20 21 01/17/2021 CBC/C OMPLE TE BLD COUNT W/DIF F nucleated red blood cells 0.0 % -0 Not Available [facility] (Lab) [address] [place], [address], 01/17/2021 13:00:49 01/18/2001/17/2021 CBC/C OMPLE TE BLD COUNT W/DIF F NRBC# 0.00 x10'3 /uL Not Available [facility] (Lab) [address] [place], [address], 01/17/2021 13:00:49 02/27/20 21 02/27/2021 IRON/ TIBC PANEL total iron binding capacity 330 mcg/d L 265-47 5 Not Available [facility] (Lab) [address] [place], [address], 02/27/2021 16:00:04 02/27/20 21 02/27/2021 IRON/ TIBC PANEL % transferrin saturation 28 % 20-55 Not Available [facility] (Lab) [address] [place], [address], 02/27/2021 16:00:04 02/27/20 21 02/27/2021 IRON/ TIBC PANEL unsaturated iron bind capacity 236 mcg/d L 126-38 2 Not Available [facility] (Lab) [address] [place], [address], 02/27/2021 16:00:04 02/27/20 21 02/27/2021 IRON/ TIBC PANEL iron 94 mcg/d L 42-175 Not Available [facility] (Lab) [address] [place], [address], 02/27/2021 16:00:04 02/27/20 21 02/26/2021 FOLAT E, SERUM /PLAS MA folate 15.9 NG/mL 2.76- Not Available [facility] (Lab) [address] [place], [address], 02/26/2021 17:16:20 02/27/20 21 02/26/2021 VITAM IN B12 (ROMELIA MARY ALICE ) vb12 428 pg/mL 239-93 1 Not Available [facility] (Lab) [address] [place], [address], 02/26/2021 17:16:18 02/27/20 21 02/26/2021 YENNI TIN ferritin 12 NG/mL 6.24-1 37 Not Available [facility] (Lab) [address] [place], [address], 02/26/2021 17:04:33 02/27/20 21 02/26/2021 CBC/C OMPLE TE BLD COUNT W/DIF F white blood cells 10.1 x10'3 /uL 4.2-10 .8 Not Available [facility] (Lab) [address] [place], [address], 02/26/2021 15:59:09 02/27/20 21 02/26/2021 CBC/C OMPLE TE BLD COUNT W/DIF F red blood cells 4.54 x10'6 /uL 3.80-5 .20 Not Available [facility] (Lab) [address] [place], [address], 02/26/2021 15:59:09 02/27/20 21 02/26/2021 CBC/C OMPLE TE BLD COUNT W/DIF F hemoglobin 14.3 g/dL 12.0-1 5.6 Not Available [facility] (Lab) [address] [place], [address], 02/26/2021 15:59:09 02/27/20 21 02/26/2021 CBC/C OMPLE TE BLD COUNT W/DIF F hematocrit 42.4 % 35.7-4 5.7 Not Available [facility] (Lab) [address] [place], [address], 02/26/2021 15:59:09 02/27/20 21 02/26/2021 CBC/C OMPLE TE BLD COUNT W/DIF F mean red cell volume 93.4 fL 82.0-9 9.0 Not Available [facility] (Lab) [address] [place], [address], 02/26/2021 15:59:09 02/27/20 21 02/26/2021 CBC/C OMPLE TE BLD COUNT W/DIF F mean red cell hemoglobin 31.5 pg 27.0-3 3.0 Not Available [facility] (Lab) [address] [place], [address], 02/26/2021 15:59:09 02/27/20 21 02/26/2021 CBC/C OMPLE TE BLD COUNT W/DIF F mean RBC HGB concentratio n 33.7 g/dL 31.0-3 6.0 Not Available [facility] (Lab) [address] [place], [address], 02/26/2021 15:59:09 02/27/20 21 02/26/2021 CBC/C OMPLE TE BLD COUNT W/DIF F red cell distribution width 12.4 % 11.8-1 5.5 Not Available [facility] (Lab) [address] [facility] [place], [address], 02/26/2021 15:59:09 02/27/20 21 02/26/2021 CBC/C OMPLE TE BLD COUNT W/DIF F platelets 246 x10'3 /uL 150-40 0 Not Available [facility] (Lab) [address] [place], [address], 02/26/2021 15:59:09 02/27/20 21 02/26/2021 CBC/C OMPLE TE BLD COUNT W/DIF F mean platelet volume 11.8 fL 9.0-12 .4 Not Available [facility] (Lab) [address] [place], [address], 02/26/2021 15:59:09 02/27/20 21 02/26/2021 CBC/C OMPLE TE BLD COUNT W/DIF F neutrophils 73.6 % 39.0-7 2.0 high Not Available [facility] (Lab) [address] [place], [address], 02/26/2021 15:59:09 02/27/20 21 02/26/2021 CBC/C OMPLE TE BLD COUNT W/DIF F lymphocytes 18.8 % 16.0-4 7.0 Not Available [facility] (Lab) [address] [place], [address], 02/26/2021 15:59:09 02/27/20 21 02/26/2021 CBC/C OMPLE TE BLD COUNT W/DIF F monocytes 6.3 % 5.0-12 .0 Not Available [facility] (Lab) [address] [place], [address], 02/26/2021 15:59:09 02/27/2002/26/2021 CBC/C OMPLE TE BLD COUNT W/DIF F eosinophils 0.6 % 1.0-7. 0 low Not Available [facility] (Lab) [address] [place], [address], 02/26/2021 15:59:09 02/27/2002/26/2021 CBC/C OMPLE TE BLD COUNT W/DIF F basophils 0.4 % 0.0-2. 0 Not Available [facility] (Lab) [address] [place], [address], 02/26/2021 15:59:09 02/27/2002/26/2021 CBC/C OMPLE TE BLD COUNT W/DIF F immature granulocytes 0.3 % 0.00-0 .50 Not Available [facility] (Lab) [address] [place], [address], 02/26/2021 15:59:09 02/27/2002/26/2021 CBC/C OMPLE TE BLD COUNT W/DIF F neutrophils, absolute count 7.42 x10'3 /uL 1.5-8. 0 Not Available [facility] (Lab) [address] [place], [address], 02/26/2021 15:59:09 02/27/2002/26/2021 CBC/C OMPLE TE BLD COUNT W/DIF F lymphocytes, absolute count 1.89 x10'3 /uL 1.07-3 .43 Not Available [facility] (Lab) [address] [place], [address], 02/26/2021 15:59:09 02/27/20 21 02/26/2021 CBC/C OMPLE TE BLD COUNT W/DIF F monocytes, absolute count 0.63 x10'3 /uL 0.29-0 .99 Not Available [facility] (Lab) [address] [place], [address], 02/26/2021 15:59:09 02/27/20 21 02/26/2021 CBC/C OMPLE TE BLD COUNT W/DIF F eosinophils, absolute count 0.06 x10'3 /uL 0.02-0 .53 Not Available [facility] (Lab) [address] [place], [address], 02/26/2021 15:59:09 02/27/20 21 02/26/2021 CBC/C OMPLE TE BLD COUNT W/DIF F basophils, absolute count 0.04 x10'3 /uL 0.01-0 .08 Not Available [facility] (Lab) [address] [place], [address], 02/26/2021 15:59:09 02/27/20 21 02/26/2021 CBC/C OMPLE TE BLD COUNT W/DIF F immature granulocytes ,absolute 0.03 x10'3 /uL 0.00-0 .05 Not Available [facility] (Lab) [address] [place], [address], 02/26/2021 15:59:09 02/27/20 21 02/26/2021 CBC/C OMPLE TE BLD COUNT W/DIF F nucleated red blood cells 0.0 % -0 Not Available [facility] (Lab) [address] [place], [address], 02/26/2021 15:59:09 02/27/20 21 02/26/2021 CBC/C OMPLE TE BLD COUNT W/DIF F NRBC# 0.00 x10'3 /uL Not Available [facility] (Lab) [address] [place], [address], 02/26/2021 15:59:09 09/01/19 21 08/31/2020 MRI, lumba r spine , w/o contr ast [facility] [address] [facility] [place] [address] [phone] Najma t Name: OTILIO NICE Access ion #: [id number] Sex: F : 1995 1 Locati on: RAD Attend ing Physic danyelle: VINICIUS ARRIAZA Orderi ng Physic danyelle: VINICIUS ARRIAZA Exam Date: 021 1:48 PM Exam Name: MRI L SPINE WO Admitt ing Diagno sis(es ): RADIOL OGY REPORT - FINAL EXAM: MRI L SPINE WO HISTOR Y: lower back pain left radicu lar pain COMPAR JEFF: None. TECHNI QUE: Multip lanar multis equenc e non-co ntrast images of lumbar spine are review ed. FINDIN GS: Verteb ral bodies : Unrema rkable Conus medull meche: T12 Disc spaces : Degene rative disc desicc ation signal intens ity is noted at L4-5 and L5-S1 Page 1 [facility] 3 [facility] Najma t Name: OTILIO NICE Access ion #: [id number] Sex: F : 1995 1 Exam Date: 021 1:48 PM Exam Name: MRI L SPINE WO Admitt ing Diagno sis(es ): Parave rtebra l soft tissue s: Unrema rkable Vascul ature: No aneury sm, unrema rkable T12-L1 throug h L3-4: Otherw ise unrema rkable . L4-5: Imagin g demons trates a modera te size left farmworker diversified crops olater al disc protru monique measur ing 9.2 by 7.8 by 7.4 mm result ing in modera te to severe centra l spinal stenos is, effaci ng the left L4 and L5 nerve root centra lly. Facet hypert rophic change s are presen t bilate rally result ing in mild left neural forami nal stenos is at this level. Severe left pre forami nal stenos is is noted. L5-S1: Imagin g demons trates a 16 mm length by 4.3 mm by 16 mm with centra l disc extrus ion, the extrud ing disc materi al extend s 9 mm along the mid farmworker diversified crops osuper ior aspect of the S1 verteb ral body. The net result is modera te centra l spinal stenos is with left farmworker diversified crops olater al displa cement of the left S1 nerve root. Bilate ral facet hypert rophic change s are noted. The net result is severe left and mild right neural forami nal stenos is. IMPRES MONIQUE: 1. L4-5: Imagin g demons trates a modera te size left farmworker diversified crops olater al disc protru monique measur ing 9.2 by 7.8 by 7.4 mm result ing in modera te to severe centra l spinal stenos is, effaci ng the left L4 and L5 nerve root centra lly. Facet hypert rophic change s are presen t bilate rally result ing in mild left neural forami nal stenos is at this level. Severe left pre forami nal stenos is is noted. 2. L5-S1: Imagin g demons trates a 16 mm length by 4.3 mm by 16 mm with centra l disc extrus ion, the extrud ing disc materi al extend s 9 mm along the mid Page [address] 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 The net result is modera te centra l spinal stenos is with left farmworker diversified crops olater al displa cement of the left S1 nerve root. Bilate ral facet hypert rophic change s are noted. The net result is severe left and mild right neural forami nal stenos is. Create d and electr onical ly signed by: Maulik parrish MD Signed Date: 5:04 PM (CT) Dictat ed by: Maulik parrish MD DD: 5:04 PM (CT) DT: 5:04 PM (CT) Page 3 of 3 [id number] [facility] (Imaging) [address] [facility] [address], [place], [place], [address], 05/14/2022 05:16:47 09/03/19 21 08/31/2020 MRI, lumba r spine , w/o contr ast [facility] MEDICA [facility] [address], [place] [address] [phone] Patien t Name: OTILIO NICE Access ion #: [id number] Sex: F : 1995 1 Locati on: RAD Attend ing Physic danyelle: VINICIUS ARRIAZA Orderi Physic danyelle: VINICIUS ARRIAZA Exam Date: 1:48 PM Exam Name: MRI L SPINE WO Admitt ing Diagno sis(es ): RADIOL OGY REPORT - FINAL WITH ADDEND UM ADDEND UM: The abdomi nal mass is consis tent with the gravid uterus . This histor y was not provid ed prior to exam being interp reted. No furthe r evalua tion with CT is indica corey. Create d and electr onical ly signed by: Daniel Fu ch, DO Signed Date: 3:40 PM (CT) Dictat ed by: Daniel Fu ch, DO DD: 3:40 PM (CT) DT: 3:40 PM (CT) Report _ID: [id number] EXAM: MRI L SPINE WO Page 1 of 4 [facility] Patien t Name: OTILIO NICE Access ion #: [id number] Sex: F : 1995 1 Exam Date: 1:48 PM Exam Name: MRI L SPINE WO Admitt ing Diagno sis(es ): HISTOR Y: lower back pain left radicu lar pain COMPAR JEFF: None. TECHNI QUE: Multip lanar multis equenc e non-co ntrast images of lumbar spine are review ed. FINDIN GS: Verteb ral bodies : Unrema rkable Conus medull meche: T12 Disc spaces : Degene rative disc desicc ation signal intens ity is noted at L4-5 and L5-S1 Parave rtebra l soft tissue s: Unrema rkable Vascul ature: No aneury sm, unrema rkable T12-L1 throug h L3-4: Otherw ise unrema rkable . L4-5: Imagin g demons trates a modera te size left farmworker diversified crops olater al disc protru monique measur ing 9.2 by 7.8 by 7.4 mm result ing in modera te to severe centra l spinal stenos is, effaci ng the left L4 and L5 nerve root centra lly. Facet hypert rophic change s are presen t bilate rally result ing in mild left neural forami nal stenos is at this level. Severe left pre forami nal stenos is is noted. Page [address] [facility] [place] Pati t Name: OTILIO NICE Access ion #: [id number] Sex: F : 1995 1 Exam Date: 021 1:48 PM Exam Name: MRI L SPINE WO Admitt ing Diagno sis(es ): L5-S1: Imagin g demons trates a 16 mm length by 4.3 mm by 16 mm with centra l disc extrus ion, the extrud ing disc materi al extend s 9 mm along the mid farmworker diversified crops osuper ior aspect of the S1 verteb ral body. The net result is modera te centra l spinal stenos is with left farmworker diversified crops olater al displa cement of the left S1 nerve root. Bilate ral facet hypert rophic change s are noted. The net result is severe left and mild right neural forami nal stenos is. IMPRES MONIQUE: 1. L4-5: Imagin g demons trates a modera te size left farmworker diversified crops olater al disc protru monique measur ing 9.2 by 7.8 by 7.4 mm result ing in modera te to severe centra l spinal stenos is, effaci ng the left L4 and L5 nerve root centra lly. Facet hypert rophic change s are presen t bilate rally result ing in mild left neural forami nal stenos is at this level. Severe left pre forami nal stenos is is noted. 2. L5-S1: Imagin g demons trates a 16 mm length by 4.3 mm by 16 mm with centra l disc extrus ion, the extrud ing disc materi al extend s 9 mm along the mid farmworker diversified crops osuper ior aspect of the S1 verteb ral body. The net result is modera te centra l spinal stenos is with left farmworker diversified crops olater al displa cement of the left S1 nerve root. Bilate ral facet hypert rophic change s are noted. The net result is severe left and mild right neural forami nal stenos is. Create d and electr onical ly signed by: Maulik parrish MD Signed Date: 5:04 PM (CT) Dictat ed by: Maulik parrish MD DD: 5:04 PM (CT) Page [address] [facility] Patien t Name: OTILIO NICE Access ion #: [id number] Sex: F : 1995 1 Exam Date: 1:48 PM Exam Name: MRI L SPINE WO Admitt ing Diagno sis(es ): DT: 5:04 PM (CT) Page 4 of 4 [id number] [facility] (Imaging) [address] [place], [address], 05/14/2022 05:16:47 09/05/19 21 08/31/2020 MRI, lumba r spine , w/o contr ast No observ ation record ed. [id number] [facility] (One Call Scheduling) [address] [place], [address], 05/14/2022 05:16:47 09/14/19 21 US, pelvi s, trans abdom inal + trans vagin al [facility] [place] [address] [facility] [facility] [address], [place] [address] [phone] [facility] t Name: OTILIO NICE Access ion #: [id number] Sex: F : 1995 5 Locati on: RA2 Attend ing Physic danyelle: MALKA MOONEY Orderi ng Physic danyelle: MALKA MOONEY Exam Date: 09/14/19 11:05 AM Exam Name: US PELVIS NON OB Admitt ing Diagno sis(es ): RADIOL OGY REPORT - FINAL EXAM: US PELVIS NON OB HISTOR Y: IUD check COMPAR JEFF: None availa ble. TECHNI QUE: Transv aginal and transa bdomin al pelvic ultras ound was perfor med. FINDIN GS: Uterus : The uterus measur es 8.7 x 3.8 x 5.6 cm. The myomet rial echo appear ance isunre markab le. The endome trium measur es 3.1 mm in thickn ess. An IUD is positi oned within the endome trial cavity , approp riate anatom ic positi on. There is a minima l volume of fluid within the endoce rvix. Right ovary: The right ovary measur es 5.3 x 4.1 x 3.7 cm demons tratin g a cyst Page [address] [facility] Najma t Name: OTILIO NICE Access ion #: [id number] Sex: F : 1995 6 Exam Date: 09/14/19 11:05 AM Exam Name: US PELVIS NON OB Admitt ing Diagno sis(es ): measur ing 4.2 x 3.1 x 3.3 cm. Right ovary is otherw ise normal in appear ance and demons trates normal color Dopple r blood flow. Left ovary: The left ovary measur es 3.0 x 1.8 x 2.5 cm. The left ovary is normal in appear ance and demons trates normal color Dopple r blood flow. Cul-de -sac: No free-f luid. IMPRES MONIQUE: 1. 4.2 cm simple cyst of the right ovary. 2. IUD noted in approp riate anatom ic positi on within the endome trial cavity . Create d and electr onical ly signed by: Maulik parrish MD Signed Date: 09/14/19 2:16 PM (CT) Dictat ed by: Maulik parrish MD (CT) (CT) Page 2 of 2 [id number] [facility] (Imaging) [address] [place], [address], 05/14/2022 05:16:47 01/16/20 21 elect kenneth bishnu am No observ ation record ed. [id number] [id number] [address] [facility], [place], [address], 05/14/2022 05:16:47 02/27/20 21 02/26/2021 XR, abdom en, 1 view [facility] [place] [place] [address] [place] [address] Patien t Name: OTILIO NICE Access ion #: [id number] Sex: F : 1995 9 Locati on: RAD Attend ing Physic danyelle: HENNY HERZOG Orderi ng Physic danyelle: HENNY HERZOG Exam Date: 2020 2:21 PM Exam Name: XR ABDOME N SINGLE AP/KUB Admitt ing Diagno sis(es ): RADIOL OGY REPORT - FINAL EXAM: XR ABDOME N SINGLE AP/KUB HISTOR Y: CONSTI PATION 25-yea r-old female with consti pation . COMPAR JEFF: CT scan of the abdome n and pelvis dated 2018. TECHNI QUE: Supine AP views of the abdome n were perfor med. FINDIN GS: No abnorm al bowel dilata tion. Gas is presen t in the distal colon. There is fecal retent ion throug hout the colon. No abnorm al calcif icatio ns are identi fied overly ing the urinar y tract. IUD is presen t in the centra l pelvis . There is mild thorac olumba r levosc oliosi s. IMPRES MONIQUE: Page 1 of 2 [facility] Patien t Name: OTILIO NICE Access ion #: [id number] Sex: F : 1995 9 Exam Date: 2020 2:21 PM Exam Name: XR ABDOME N SINGLE AP/KUB Admitt ing Diagno sis(es ): 1. No eviden ce of bowel obstru ction. 2. Fecal retent ion in the colon sugges tive of consti pation simila r to that seen on CT scan from October 2018. Create d and electr onical ly signed by: Juan Daniel rubin MD Signed Date: 2020 2:59 PM (CT) Dictat ed by: Juan Daniel rubin MD DD: 2020 2:59 PM (CT) DT: 2020 2:59 PM (CT) Page 2 of 2 [id number] [facility] (Imaging) [address] [place], [address], 05/14/2022 05:16:47 03/19/19 22 01/26/2021 librado r monit or No observ ation record ed. [id number] [facility] [address], [place], [address], 05/14/2022 05:16:47 Result Notes None recorded. Problems Name Problem SNOMED Code Status Onset Date Resolution Date Notes Provider Name and Address Organization Details Recorded Time Dysmenorrh ea 834838216 Active Not Available [facility] 3 05:07:21 Premenstru al dysphoric disorder 071989 Active Not Available [facility] 3 05:07:21 [id number] Completed 201810/06/2019 Not Available [facility] 3 05:07:21 Irregular periods 41094518 Active Not Available [facility] 3 05:07:21 Chronic constipati on 073242756 Active 20[address] [facility] [place], [address] [facility] [facility] [address], [place], [address] , [facility] [employer] 15:48:14 Problem Notes None recorded. Procedures Surgical History Date Name Laterality Status Provider Name and Address Organization Details Recorded Time 11/16/19 20 insertion of intrauterine contraceptive device completed Not Available [facility] 05/14/2022 05:00:07 12/10/19 19 Colonoscopy completed Not Available [facility] 05/15/19 05:00:07 Ear Tubes completed Not Available [facility] 0 05/14/2022 05:00:07 [employer] Surgery completed Not Available [facility] 05/14/2022 05:00:07 Ear Tubes completed Not Available [facility] 0 05/14/2022 05:00:07 Tubal Ligation completed Chandni velasco, MA [employer] 12/29/2022 15:34:10 Imaging Results Imaging Date Name Status LastModified by Organization Details LastModified Time 08/31/2020 MRI, lumbar spine, w/o contrast completed [id number] [facility] (Imaging) [address] [place], [address], 05/14/2022 05:16:47 08/31/2020 MRI, lumbar spine, w/o contrast completed [id number] [facility] (Imaging) [address] [place], [address], 05/14/2022 05:16:47 08/31/2020 MRI, lumbar spine, w/o contrast completed [id number] [facility] (One Call Scheduling) [address] [place], [address], 05/14/2022 05:16:47 09/13/2020 US, pelvis, transabdominal + transvaginal completed [id number] [facility] (Imaging) [address] [place], [address], 05/14/2022 05:16:47 01/15/2021 electrocardiogram completed MIGRATION. [id number] [facility] [address], [place], [address], 05/14/2022 05:16:47 02/26/2021 XR, abdomen, 1 view completed MIGRATIO N.[id number] [facility] (Imaging) [address] [place], [address], 05/14/2022 05:16:47 01/26/2021 holter monitor completed [id number].[id number] [facility] [address], [place], [address], 05/14/2022 05:16:47 Procedure Notes None recorded. Medical Equipment None Reported. Allergies Allergen ID Allergen Name Allergen Category Reaction Reaction Severity Criticality Documentation Date Start Date Code Code System Note Provider Name and Address Organization Details Recorded Time 9383 Zithromax medicatio n hives Not available Not available 05/14/2022 21843 4 RxNorm Not Available [facility] 3 05:16:20 9384 Substance with sulfonami de structure and antibacte rial mechanism of action (substanc e) medicatio n other Not available Not available 05/14/2022 77169 8003 SNOMED dehyd ratio n - body shuts down Not Available [facility] 3 05:16:21 Medications Name Sig Start Date Stop Date Status Note LastModified by Organization Details LastModified Time carisoprod ol 350 mg tablet TAKE 1 TABLET BY MOUTH EVERY 8 HOURS NEEDED FOR PAIN OR MUSCLE SPASM 12/29 completed Not Available Not Available Not Available amoxicilli n 500 mg capsule Take 1 capsule every 8 hours by oral route for 7 days. active Not Available Not Available No t Available Mirena 21 mcg/24 hr (up to 8 years) 52 mg intrauteri ne device Take 1 device by intrauter ine route. 10/16 /2023 completed Not Available Not Available Not Available prednisone 10 mg tablet 09/04 completed Not Available Not Available Not Available ibuprofen 800 mg tablet TAKE 1 TABLET BY MOUTH THREE TIMES DAILY NEEDED FOR PAIN 12/29 completed Not Available Not Available Not Available fluconazol e 150 mg tablet 12/29 completed Not Available Not Available Not Available metronidaz ole 0.75 % (37.5 mg/5 gram) vaginal gel INSERT 1 APPLICATO RFUL VAGINALLY WEEKLY FOR 6 MONTHS THEN USE VAGINALLY AT BEDTIME 12/29 completed Not Available Not Available Not Available ondansetro n HCl 4 mg tablet TAKE 1 TABLET BY MOUTH EVERY 6 HOURS NEEDED FOR NAUSEA 12/29 completed Not Available Not Available Not Available prednisone 20 mg tablet active Not Available Not Available Not Available Tubersol 5 tub. unit/0.1 mL intraderma l injection solution Inject 0.1 mL by intraderm al route. 03/07 completed Not Available Not Available Not Available metronidaz ole 500 mg tablet TAKE 1 TABLET BY MOUTH EVERY 12 HOURS FOR 7 DAYS 12/29 completed Not Available Not Available Not Available sulfametho xazole 800 mg-trimeth oprim 160 mg tablet active Not Available Not Available No t Available omeprazole 40 mg capsule,de layed release Take 1 capsule every day by oral route. 01/07 completed Not Available Not Available Not Available prednisone 10 mg tablets in a dose pack Take 1 tab by mouth, 3 times a day for 3 daysTake 1 tab by mouth 2 times a day for 2 daysTake 1 tab by mouth once a day for 1 day active Not Available Not Available No t Available meloxicam 7.5 mg tablet Take 1 tablet twice a day by oral route for 30 days. active Not Available Not Available No t Available oxycodone- acetaminop hen 5 mg-325 mg tablet TAKE 1 TABLET BY MOUTH EVERY 6 HOURS NEEDED FOR PAIN 12/29 completed Not Available Not Available Not Available amoxicilli n 875 mg tablet active Not Available Not Available Not Available magnesium oxide 400 mg (241.3 mg magnesium) tablet Take 1 tablet every day by oral route for 90 days. active Not Available Not Available No t Available triamcinol one acetonide 0.025 % topical cream active Not Available Not Available Not Available Kenalog 10 mg/mL suspension for injection In office injection administe red by the provider 12/06 completed [facility]: [phone] Not Available Not Available Not Available hyoscyamin e 0.125 mg disintegra ting tablet Place 1 tablet every 4 hours by sublingua l route as needed. 01/07 completed from [facility] Not Available Not Available Not Available cephalexin 500 mg capsule active Not Available Not Available Not Available triamcinol one acetonide 0.1 % topical ointment active Not Available Not Available Not Available hyoscyamin e 0.125 mg sublingual tablet 01/07 completed Not Available Not Available Not Available docusate sodium 100 mg capsule TAKE ONE CAPSULE BY MOUTH TWICE DAILY 12/29 completed Not Available Not Available Not Available methylpred nisolone 4 mg tablets in a dose pack FOLLOW PACKAGE DIRECTION S 02/26 completed Not Available Not Available Not Available medroxypro gesterone 150 mg/mL intramuscu lar suspension Inject 1 mL every 3 months by intramusc ular route as directed. 07/24 completed Not Available Not Available Not Available amoxicilli n 875 mg-potassi um clavulanat e 125 mg tablet TAKE 1 TABLET BY MOUTH TWICE DAILY FOR 7 DAYS 02/26 completed Not Available Not Available Not Available Ventolin HFA 90 mcg/actuat ion aerosol inhaler active Not Available Not Available Not Available oxycodone 5 mg tablet TK 1 T PO Q 6 H PRN active Not Available Not Available No t Available medroxypro gesterone 150 mg/mL intramuscu lar syringe INJECT 1ML INTO THE MUSCLE EVERY 3 MONTHS 07/24 completed Not Available Not Available Not Available escitalopr am 10 mg tablet TAKE ONE TABLET DAILY . CALL OFFICE IF ANY CHANGES IN MOOD OR BEHAVIOR 10/05 completed Not Available Not Available Not Available FE 04/04 (28) 1 mg-20 mcg (21)/75 mg (7) tablet Take 1 tablet every day by oral route for 28 days. active Not Available Not Available No t Available take 1 tab PO QD 12/27 completed Not Available Not Available Not Available multivitam in 2019 active Not Available Not Available Not Avai lable collagen (bovine) 12/06 completed Not Available Not Available Not Available MIKE (28) 3 mg-0.02 mg tablet Take 1 tablet every day by oral route. active Not Available Not Available No t Available lidocaine (PF) 10 mg/mL (1 %) injection solution In office injection administe red by the provider 12/06 completed [facility]: [phone] Not Available Not Available Not Available Suprep Bowel Prep Kit 17.5 gram-3.13 gram-1.6 gram oral solution 01/07 completed Not Available Not Available Not Available Linzess 145 mcg capsule Take 1 PO daily in AM with breakfast 12/06 completed Not Available Not Available Not Available Minastrin 24 Fe 1 mg-20 mcg (24)/75 mg (4) chewable tablet Chew 1 tablet every day by oral route. active Not Available Not Available No t Available Junel Fe 24 1 mg-20 mcg (24)/75 mg (4) tablet 12/29 completed Not Available Not Available Not Available Larissia 0.1 mg-20 mcg tablet TAKE ONE TABLET DAILY active Not Available Not Available No t Available Vitals Date Recorded Body mass index (BMI) Body mass index (BMI) Body height Body temperature Body weight Body weight Systolic blood pressure Diastolic blood pressure Provider Name and Address Organization Details Last Updated DateTime 1 22.2 kg/m2 22.3 kg/m2 175.26 cm 98 [degF] 24768.8 6 g 12266.4 5 g 124 mm[Hg] 80 mm[Hg] Not Available [facility] 3 05:01:39 Date Recorded Body mass index (BMI) Body height Oxygen saturation Oxygen saturation in Arterial blood by Pulse oximetry Heart rate Body temperature Body weight Systolic blood pressure Diastolic blood pressure Provider Name and Address Organization Details Last Updated DateTime 1 22.6 kg/m2 175.26 cm 99 % 99 % 78 /min 97.5 [degF] 39361.6 3 g 118 mm[Hg] 76 mm[Hg] Not Available [facility] 3 05:01:39 Date Recorded Body mass index (BMI) Body height Oxygen saturation Oxygen saturation in Arterial blood by Pulse oximetry Heart rate Body temperature Body weight Systolic blood pressure Diastolic blood pressure Provider Name and Address Organization Details Last Updated DateTime 1 23 kg/m2 175.26 cm 98 % 98 % 80 /min 97.9 [degF] 86737.4 1 g 116 mm[Hg] 76 mm[Hg] Not Available [facility] 3 05:01:39 Date Recorded Body mass index (BMI) Body height Oxygen saturation Oxygen saturation in Arterial blood by Pulse oximetry Heart rate Body temperature Body weight Systolic blood pressure Diastolic blood pressure Provider Name and Address Organization Details Last Updated DateTime 2 23.9 kg/m2 175.26 cm 99 % 99 % 72 /min 97.4 [degF] 40703.9 6 g 116 mm[Hg] 70 mm[Hg] Not Available [facility] 3 05:01:39 Date Recorded Body weight Body mass index (BMI) Body height Body temperature Heart rate Oxygen saturation Oxygen saturation in Arterial blood by Pulse oximetry Systolic blood pressure Diastolic blood pressure Provider Name and Address Organization Details Last Updated DateTime 3 91439.7 8 g 23.6 kg/m2 175.26 cm 97.8 [degF] 76 /min 99 % 99 % 116 mm[Hg] 78 mm[Hg] Chandni Zazueta MA [facility] 3 15:35:52 Social History Question Answer Notes LastModified by Organizat ion Details LastModified Time Tobacco Smoking Status Never Smoker Not Available [facility] 05/14/2022 04:56:04 What Is Your Level Of Alcohol Consumption? None [id number].[id number] Information not available 05/14/2022 Do You Wear A Helmet When Biking? No MIGRATION.10334 [id number] Information not available 05/14/2022 What Is Your Level Of Caffeine Consumption? Heavy MIGRATION.27793 44905 Information not available 05/14/2022 How Much Tobacco Do You Chew? None MIGRATION.09640 [id number] Information not available 05/14/2022 In The 14 Days Before Symptom Onset, Have You Had Close Contact With A Laboratory-confi rmed COVID-19 While That Case Was Ill? No MIGRATION.33355 77064 Information not available 05/14/2022 In The 14 Days Before Symptom Onset, Have You Had Close Contact With A Person Who Is Under Investigation For COVID-19 While That Person Was Ill? No MIGRATION.59478 [id number] Information not available 05/14/2022 What Type Of Diet Are You Following? REGULAR MIGRATION.38965 82076 Information not available 05/14/2022 Which Illicit Or Recreational Drugs Have You Used? None MIGRATION.27601 [id number] Information not available 05/14/2022 Do You Or Have You Ever Used E-cigarettes Or Vape? Never Used Electronic Cigarettes MIGRATION.28133 80749 Information not available 05/14/2022 What Is The Highest Grade Or Level Of School You Have Completed Or The Highest Degree You Have Received? [id number] MIGRATION.39630 62011 Information not available 05/14/2022 What Is Your Occupation? Nurse MIGRATION.04288 51806 Information not available 05/14/2022 Have There Been Any Changes To Your Family Or Social Situation? No MIGRATION.41581 03545 Information not available 05/14/2022 What Is The Fluoride Status Of Your Home? Unknown MIGRATION.52813 36058 Information not available 05/14/2022 Are There Any Guns Present In Your Home? No MIGRATION.47025 [id number] Information not available 05/14/2022 Do You Use Insect Repellent Routinely? No MIGRATION.98000 81014 Information not available 05/14/2022 Where Do You Live? SingleLevelHouse MIGRATION.38922 34029 Information not available 05/14/2022 What Was The Date Of Your Most Recent Tobacco Screening? 12/29/2022 [email or web address] Information not available 12/29/2022 Do You Have Any Pets? Yes MIGRATION.45088 06746 Information not available 05/14/2022 Do You Use Your Seat Belt Or Car Seat Routinely? Yes MIGRATION.64115 04144 Information not available 05/14/2022 Do You Have Smoke And Carbon Monoxide Detectors In Your Home? Yes MIGRATION.03349 60884 Information not available 05/14/2022 Are You Passively Exposed To Smoke? No MIGRATION.35359 28847 Information not available 05/14/2022 Do You Or Have You Ever Used Smokeless Tobacco? Never Used Smokeless Tobacco MIGRATION.27075 60256 Information not available 05/14/2022 Are There Any Smokers In Your House? No MIGRATION.98094 65709 Information not available 05/14/2022 Do You Feel Stressed (tense, Restless, Nervous, Or Anxious, Or Unable To Sleep At Night)? [id number] MIGRATION.65226 33000 Information not available 05/14/2022 Do You Use Any Illicit Or Recreational Drugs? No MIGRATION.53100 12407 Information not available 05/14/2022 Do You Use Sunscreen Routinely? No MIGRATION.89710 68036 Information not available 05/14/2022 How Many Years Have You Smoked Tobacco? 0 MIGRATION.38908 00623 Information not available 05/14/2022 Have You Recently Traveled Abroad? No [id number] Information not available 05/14/2022 Do You Have Any Dietary Restrictions? No [id number] Information not available 05/14/2022 Sex: Unknown Functional Status Question Answer Note LastModified by Organizat ion Details LastModified Time What is your exercise level? Moderate [id number] Information not available 05/14/2022 Mental Status None recorded. Family History Relationship Description Onset Age of this Age Resolved Age Notes LastModified by Organization Details LastModified Time Unspecified Relation Osteoporosis grandm other? ? [id number] Not available 05/14/2022 05:00:09 Unspecified Relation Hypertensive disorder grandp arents both sides [id number] Not available 05/14/2022 05:00:09 Unspecified Relation Malignant tumor of colon grandf ather? ? [id number] Not available 05/14/2022 05:00:09 Medical History Condition Response NERVE DISEASE N BLINDNESS N RHEUMATIC FEVER N KIDNEY STONES N BLADDER PROBLEMS N MRSA N POLIO N LUNG DISEASE/DISORDER N RADIATION / CHEMOTHERAPY N COPD N BLOOD DISEASES N EAR OR HEARING PROBLEMS N MUMPS N BOWEL PROBLEMS N DEPRESSION (INCLUDING POST ) N STROKE/TIA N ULCERS N BENIGN PROSTATIC HYPERPLASIA N MEASLES N MYOCARDIAL INFARCTION N OBESITY N GERD/NAUSEA N ANEURYSM N URINARY/BLADDER/KIDNEY PROBLEMS N CORONARY ARTERY DISEASE (CAD) N ADDICTION CONCERNS N ENDOMETRIOSIS N Impotence N USE OF BLOOD THINNERS N SKIN PROBLEMS N GASTROINTESTINAL DISORDER N PERIPHERAL VASCULAR DISEASE N MUSCLE,JOINT OR BONE PROBLEMS N GASTROINTESTINAL BLEEDING N BLOOD CLOTS N ASTHMA N CATARACTS N ERECTILE DYSFUNCTION N VARICOSITIES N GI PROBLEMS N Low Testosterone N INFERTILITY N AIDS/HIV N CHEMOTHERAPY / RADIATION N LIVER DISEASE N MALE HYPOGONADISM N HYPERTENSION N Deficiency N ANXIETY DISORDER N BLOOD TRANSFUSION N ANEMIA/BLOOD DISORDER N CHRONIC EAR INFECTIONS N BRONCHITIS N TUBERCULOSIS N GLAUCOMA N FOOT PROBLEM N DIVERTICULITIS N SLEEP APNEA N CHICKENPOX N INFECTIOUS DISEASE N HEART ARRHYTHMIA N PROSTATE N INSOMNIA N HIGH CHOLESTEROL / HYPERLIPIDEMIA Y EYE PROBLEMS N EDEMA N CHRONIC PAIN SYNDROME N CAROTID BLOCKAGE N CONSTIPATION N BACK / NECK PROBLEMS N HAVE YOU BEEN HOSPITALIZED OR SEEN IN [facility] IN THE PAST YEAR ? Y ATHEROSCLEROSIS N BREAST PROBLEMS N DIALYSIS N ECZEMA N OSTEOPOROSIS N ARTHRITIS N APPENDICITIS N DIABETES, TYPE N BAD TEETH N ENT N HEARTBURN / REFLUX N AFIB N AUTISM SPECTRUM DISORDER (ASD) N HEPATITIS / LIVER DISEASE N GOUT N ALZHEIMER'S DISEASE N SLEEP DISORDER N Brain Problems N HERPES N DEMENTIA N HEADACHES/MIGRAINES N SEIZURES/EPILEPSY N VASCULAR DISEASE N PACEMAKER N Blood Disorder N DIZZINESS N HEART DISEASE/HEART PROBLEMS N KIDNEY DISEASE N MULTIPLE SCLEROSIS N CARDIAC ARRHYTHMIA N CANCER: SPECIFY N ATRIAL FIBRILLATION N Gall Stones N PULMONARY EMBOLISM N AUTOIMMUNE DISEASE N Gynecological History Statement/Question Response Current Control Method IUD Date of LMP 07/06/2020 Obstetrics History GPAL:G 1 P 1 0 0 1 Type Value Full Term 1 Living 1 Total 1 Immunizations Vaccine Type Date Status Note Provider Nam e and Address Organization Details Recorded Time COVID-19, mRNA, LNP-S, PF, 30 mcg/0.3 mL dose 1 completed Not Available [facility] 05/14/2022 05:15:57 COVID-19, mRNA, LNP-S, PF, 30 mcg/0.3 mL dose 1 completed Not Available [facility] 05/14/2022 05:15:57 Influenza, split virus, quadrivalent, preservative 9 completed Not Available [facility] 05/14/2022 05:15:57 Tdap 0 completed Not Available [facility] 05/14/2022 05:15:57 Influenza, split virus, quadrivalent, PF 0 completed Not Available [facility] 05/14/2022 05:15:57 Influenza, split virus, quadrivalent, PF 9 completed Not Available [facility] 05/14/2022 05:15:57 Past Encounters Encounter ID Performer Location Encounter Start Date Encounter Closed Date Diagnosis/Indication Diagnosis SNOMED-CT Code Diagnosis ICD10 Code Diagnosis Note [id number] [facility] Internal Med [facility] 15 [address] [facility], [facility] 15 [place] [address] 07/03/2020 00:00:00 07/03/2020 20:33:59 [id number] [facility] [address] [place] [address] 07/09/2020 00:00:00 07/09/2020 10:40:43 [id number] [facility] [address] [place] [address] 08/17/2020 00:00:00 08/17/2020 15:21:41 [id number] [facility] [address] [place] [address] 09/04/2020 00:00:00 09/04/2020 15:36:07 [id number] _ATHENA_M IGRATION_ DEFAULT_1 _1 , 09/04/2020 00:00:00 09/04/2020 18:06:19 [id number] [facility] [address] [address] 01/15/2021 00:00:00 01/15/2021 15:30:39 [id number] [facility] [address] [place], [place] [address]., [address] [address] 02/26/2021 00:00:00 02/26/2021 18:57:17 [id number] [facility] [address] [place], [place] [address] [address] [address] 12/06/2021 00:00:00 12/06/2021 17:49:18 [id number] BASILIO Banuelos [facility] [address] [place] [address] Ave[address] [address] 12/29/2022 15:26:43 12/29/2022 16:06:28 Adult health examination [id number] Z00.00 She declines screening labs today Chronic constipation 236 455908 K59.09 follows GI- Dr. Benjamin campos did not work on fiber supplement and miralax per GI Depression screening 171 652020 Z13.31 Body mass index 20-24 - normal [id number] Z68.23 recommend healthy, well balanced mealsfocus on lean meats, fresh vegetables , fresh fruits, whole grainsredu ce fast/proce ssed foods or eating out to no more than 1-2 times per weekaim to get 30 min of exercise most days of the week- walking is a great choicealso recommend resistance training 2-3 times per week Health Concerns Section Related Observation LastModified by Organization Detai ls LastModified Time None Recorded Concern Status LastModified by Organization Details LastModified Time None Recorded Advance Directives Directive None Recorded Payers Encounter Date Sequence Insurance Name Policy Number Policy Garcia Covered Member ID Garcia Member ID Guarantor Name 12/29/2022 1 [facility] [id number] Otilio Nice [id number] Otilio Nice Notes Date Note Type Note Provider Name and Address Organization Details Recorded Time 12/29/2022 text/html Otilio presents today for her annual wellness exam. Overall she has been feeling well and at her baseline. Her only complaint today is she has got some fatigue which is related to her work schedule. She is currently working nights. 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 She gets her flu shot at work. She declines screening labs today. Henny Herzog, NURSING EDUCATION CONSULTANT-C [address] [facility] [place], [facility] [address], [place], [address], [facility] [employer] 12/29/2022 16:49:37 OBGyn Episode No OBEpisode recorded.
--- OUTSIDE RECORDS SUMMARY | 2024-07-07 08:17 | XMS_ITS ---
Author Organization [facility] Address [address] [place] [address] Care Team Providers Care All Source Collection Manager Name Role Phone StarCristin marquezyla Primary Care Provider Rajesh Marcos Unavailable [phone] MEDICATIONS Medication SIG (Take, Route, Frequency, Duration) Notes Start Date End Date Status Cyclobenzaprine HCl 5 MG 1 tablet Orally three times daily s needed for spasm. MAY CAUSE DROWSINESS/GROGGINESS for 30 day(s) 03/03/2024 Active methylPREDNISolone 4 MG as directed Oral ly for 6 days 03/03/2024 Active Naproxen 500 MG 1 tablet with food o r milk as needed Orally every 12 hrs for 90 days 03/03/2024 Active traMADol HCl 50 MG 1 tablet as needed Orally every 4-6 hours for 7 days 09/14/2020 Not-Taking Multivitamin Active Encounters Encounter Location Date Provider Diagnosis [facility] [address] [place] [address] 04/11/2024 Rajesh Green PLAN OF TREATMENT No Information
[2024-07-07 08:31] LABS: Basophils Percent Auto 0.4 % (0.2-1.2); Eosinophils Absolute Auto 0.1 K/mm3 (0-0.3); Eosinophils Percent Auto 0.7 % (0-4.4); Hematocrit 41.8 % (37.0-47.0); Hemoglobin 13.6 g/dL (12.0-15.0); Immature Granulocyte Absolute 0.04 K/mm3 (0.00-0.031); Immature Granulocyte Percent A 0.4 % (0-0.5); Lymphocytes Absolute Auto 0.97 K/mm3 (0.9-3.2); Lymphocytes Percent Auto 10.8 % (18.3-44.2); Mean Corpuscular HGB Conc 32.5 g/dl (32-36); Mean Corpuscular Hemoglobin 30.7 pg (26-34); Mean Corpuscular Volume 94.4 fl (80-100); Mean Platelet Volume 11.5 fl (7.4-10.4); Monocytes Absolute Auto 0.5 K/mm3 (0.1-0.6); Monocytes Percent Auto 5.5 % (2.6-8.5); Neutrophils Absolute Auto 7.4 K/mm3 (1.3-6.7); Neutrophils Percent Auto 82.2 % (45.5-73.1); Platelet Count Result 221 k/mm3 (150-375); Red Blood Count 4.43 M/mm3 (4.2-5.4); Red Cell Distribution Width 12.1 % (11.5-14.5)
[2024-07-07 08:41] LABS: Alanine Aminotransferase 20 U/L (6-35); Albumin Level 4.9 g/dL (3.5-5.1); Alkaline Phosphatase 60 U/L (38-126); Anion Gap 10 mmol/L (4-12); Aspartate Amino Transferase 27 U/L (14-36); Bilirubin,Total 0.9 mg/dL (0.2-1.3); Blood Urea Nitrogen 16 mg/dL (7-17); Calcium 9.3 mg/dL (8.4-10.2); Carbon Dioxide 28 mmol/L (22-30); Chloride 102 mmol/L (98-107); Cholesterol 219 mg/dL (0-200); Estimated Glomerular Filt Rate > 60; Glucose 96 mg/dL (65-110); HDL Direct 78 mg/dL; Potassium 3.9 mmol/L (3.4-5.0); Sodium 140 mmol/L (137-145); Triglycerides 73 mg/dL (<150)
[2024-07-07 08:44] LABS: Hemoglobin A1C 4.9 % (<5.7)
[2024-07-07 08:49] LABS: Iron 133 ug/dL (37-170)
[2024-07-07 08:52] LABS: LDL Cholesterol Direct 99 mg/dL
[2024-07-07 08:59] LABS: Percent Iron Saturation 36 % (20-50)
[2024-07-07 09:21] LABS: Thyroid Stimulating Hormone Reflex 0.902 uIU/mL (0.465-4.68)
[2024-07-07 09:47] LABS: Vitamin D 25 Hydroxy 40.9 ng/mL
[2024-07-07 09:48] LABS: Folic Acid > 20.0 ng/mL (2.76->20)
[2024-07-08 06:18] LABS: Progesterone <0.5 ng/mL
[2024-07-09 04:44] LABS: DHEA-Sulfate 207 mcg/dL (14-349); FSH 5.5 mIU/mL; LH 17.6 mIU/mL; Prolactin 6.3 ng/mL; Sex Hormone Binding Globulin 51 nmol/L (17-124)
== END 2024-07-07 08:06 | disposition home or self-care (01) ==
LOC: ANHLAB 08:07
PROVIDERS: PCP Family Medicine; Visit Provider Obstetrics & Gynecology
DX: N92.6 Irregular menstruation, unspecified (principal); Z00.00 Encounter for general adult medical examination without abnormal findings
CPT/HCPCS: 36415; 80053; 80061; 82306; 82607; 82627; 82670; 82728; 82746; 83001; 83002; 83036; 83498; 83540; 83550; 84144; 84146; 84270; 84402; 84403; 84443; 85025